=== PATIENT | female | born 1930 | race Caucasian/White ===

== ENCOUNTER 2019-11-04 18:18 | Emergency (ER) | payer MEDICARE, OTHER ==
[2019-11-04] MEDS ORDERED: Adenosine 12 MG/4 ML SDV ONE (18:48)
[2019-11-04] MEDS ORDERED: Sodium Chloride 0.9% 10 ML Syringe FLUSH PRN (18:48)
[2019-11-04] MEDS ORDERED: Adenosine 6 MG/2 ML SDV ONE (18:48)
[2019-11-04] MEDS ORDERED: Sodium Chloride 0.9% 1,000 ML IV SCH (19:00)
--- NOTE | 2019-11-04 19:05 | EDM.PDOC ---
ED HPI GENERAL MEDICAL PROBLEM - General Chief Complaint: Chest Pain Stated Complaint: HIGH BLOOD PRESSURE FAST PULSE Time Seen by Provider: 11/04/19 18:48 Source of Information: Reports: Patient History Limitations: Reports: No Limitations - History of Present Illness INITIAL COMMENTS - FREE TEXT/NARRATIVE: The patient presents with palpitations and chest pain. She said this started last night. She went to bed and it went away. It came back today and her checked her BP and pulse. Her BP was up and her pulse was elevated at 175. She has chest pain that radiates to her back and she has some shortness of breath. She has no fever, chills, cough, congestion, runny nose, abdominal pain, nausea or vomiting. She has a history of hypertension. This may have happened a time before but she drank some fluids and it went away. Onset: Gradual Duration: Day(s): (last night) Location: Reports: Chest Quality: Reports: Pressure Severity: Moderate Improves with: Reports: None Worsens with: Reports: None Associated Symptoms: Reports: Chest Pain, Shortness of Breath. Denies: Cough, Fever/Chills, Headaches, Nausea/Vomiting - Related Data Allergies Allergy/AdvReac Type Severity Reaction Status Date / Time pneumococcal vaccine Allergy Airway Verified 11/04/19 18:56 Tightness Sulfa (Sulfonamide Allergy Hives Verified 11/04/19 18:56 Antibiotics) Home Meds: Home Meds Lisinopril 10 mg PO DAILY 12/04/13 [History] Aspirin [Jimmy Chewable] 81 mg PO DAILY 12/05/18 [History] Citalopram [Citalopram HBr] 20 mg PO DAILY 12/05/18 [History] Rosuvastatin Calcium 20 mg PO DAILY 12/05/18 [History] Metoprolol Succinate 25 mg PO DAILY #30 tab.er.24h 11/04/19 [Rx] Past Medical History HEENT History: Reports: Cataract Cardiovascular History: Reports: High Cholesterol, Hypertension Gastrointestinal History: Reports: Diverticulosis DIRECTOR GLOBAL History: Reports: Musculoskeletal History: Reports: Neck Pain, Chronic Other Musculoskeletal History: 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, 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 Neurological History: Reports: CVA Other Neuro History: 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 Endocrine/Metabolic History: Reports: Diabetes, Type II Oncologic (Cancer) History: Reports: Breast, Colon - Past Surgical History HEENT Surgical History: Reports: Tonsillectomy Cardiovascular Surgical History: Reports: Carotid Stents GI Surgical History: Reports: Colon Musculoskeletal Surgical History: Reports: Hip Replacement Oncologic Surgical History: Reports: Other (See Below) Social & Family History - Family History Family Medical History: Noncontributory Cardiac: Reports: Heart Failure, Stent Respiratory: Reports: Asthma Psychiatric: Reports: Anxiety, Depression Endocrine/Metabolic: Reports: Diabetes, type II Oncologic: Reports: Colon - Tobacco Use Smoking Status *Q: Never Smoker Second Hand Smoke Exposure: No - Caffeine Use Caffeine Use: Reports: None - Recreational Drug Use Recreational Drug Use: No - Living Situation & Occupation Living situation: Reports: , with Family Occupation: Retired ED ROS GENERAL - Review of Systems Review Of Systems: See Below Constitutional: Reports: No Symptoms HEENT: Reports: No Symptoms Respiratory: Reports: Shortness of Breath Cardiovascular: Reports: Chest Pain, Palpitations Endocrine: Reports: No Symptoms GI/Abdominal: Reports: No Symptoms : Reports: No Symptoms Musculoskeletal: Reports: No Symptoms ED EXAM, GENERAL - Physical Exam Exam: See Below Exam Limited By: No Limitations General Appearance: Alert, No Apparent Distress Ears: Normal External Exam Nose: Normal Inspection Head: Atraumatic, Normocephalic Neck: Normal Inspection Respiratory/Chest: No Respiratory Distress, Lungs Clear, Normal Breath Sounds Cardiovascular: No Edema, No Murmur, Tachycardia GI/Abdominal: Soft, Non-Tender, No Organomegaly, No Mass Back Exam: Normal Inspection Extremities: Normal Inspection Neurological: Alert, Oriented, No Motor/Sensory Deficits EKG INTERPRETATION EKG Date: 11/04/19 Time: 18:48 Rhythm: NSR Rate (Beats/Min): 79 [place]: Normal P-Wave: Present QRS: Normal ST-T: Normal QT: Normal EKG Interpretation Comments: Q waves in the inferior leads Course - Vital Signs Last Recorded V/S: Last Vital Signs Temp 97.1 F 11/04/19 18:53 Pulse 166 H 11/04/19 18:53 Resp 15 11/04/19 18:53 BP 142/94 H 11/04/19 18:53 Pulse Ox 97 11/04/19 18:53 - Orders/Labs/Meds Orders: Active Orders 24 hr Category Date Time Status Cardiac Monitoring [RC] . DIRECTED Care 11/04/19 18:48 Active EKG Documentation Completion [RC] STAT Care 11/04/19 18:48 Active Peripheral IV Care [RC] . DIRECTED Care 11/04/19 18:48 Active Sodium Chloride 0.9% [Normal Saline] 1,000 ml Med 11/04/19 19:00 Active IV ASDIRECTED Sodium Chloride 0.9% [Saline Flush] Med 11/04/19 18:48 Active 10 ml FLUSH ASDIRECTED PRN Peripheral IV Insertion Adult [OM.PC] Stat Oth 11/04/19 18:48 Ordered Medication Orders Sodium Chloride (Normal Saline) 1,000 mls @ 125 mls/hr IV ASDIRECTED JULIANA Last Admin: 11/04/19 19:32 Dose: 125 mls/hr Sodium Chloride (Saline Flush) 10 ml FLUSH ASDIRECTED PRN PRN Reason: Keep Vein Open Last Admin: 11/04/19 19:54 Dose: 10 ml Labs: Laboratory Tests 11/04/19 11/04/19 Range/Units 18:50 18:50 WBC 5.54 (3.98-10.04) K/mm3 RBC 4.30 (3.98-5.22) M/mm3 Hgb 12.9 (11.2-15.7) gm/dl Hct 39.2 (34.1-44.9) % MCV 91.2 (79.4-94.8) fl MCH 30.0 (25.6-32.2) pg MCHC 32.9 (32.2-35.5) g/dl RDW Std Deviation 43.3 (36.4-46.3) fL Plt Count 166 L (182-369) K/mm3 MPV 8.2 L (9.4-12.3) fl Neut % (Auto) 53.2 (34.0-71.1) % Lymph % (Auto) 35.6 (19.3-51.7) % [place] % (Auto) 9.7 (4.7-12.5) % Eos % (Auto) 1.1 (0.7-5.8) Baso % (Auto) 0.4 (0.1-1.2) % Neut # (Auto) 2.95 (1.56-6.13) K/mm3 Lymph # (Auto) 1.97 (1.18-3.74) K/mm3 [place] # (Auto) 0.54 H (0.24-0.36) K/mm3 Eos # (Auto) 0.06 (0.04-0.36) K/mm3 Baso # (Auto) 0.02 (0.01-0.08) K/mm3 Sodium 137 (136-145) mEq/L Potassium 4.1 (3.5-5.1) mEq/L Chloride 104 (98-107) mEq/L Carbon Dioxide 24 (21-32) mEq/L Anion Gap 13.1 (5-15) BUN 28 H (7-18) mg/dL Creatinine 1.3 H (0.55-1.02) mg/dL Est Cr Clr Drug Dosing 23.66 mL/min Estimated GFR (MDRD) 39 (>60) mL/min BUN/Creatinine Ratio 21.5 H (14-18) Glucose 199 H (83-115) mg/dL Calcium 8.9 (8.5-10.1) mg/dL Total Bilirubin 0.6 (0.2-1.0) mg/dL AST 31 (15-37) U/L ALT 44 (14-59) U/L Alkaline Phosphatase 87 (46-116) U/L Troponin I < 0.017 (0.00-0.056) ng/mL Total Protein 7.0 (6.4-8.2) g/dl Albumin 4.0 (3.4-5.0) g/dl Globulin 3.0 gm/dL Albumin/Globulin Ratio 1.3 (1-2) Meds: Medications Generic Name Dose Route Start Last Admin Trade Name Freq PRN Reason Stop Dose Admin Sodium Chloride 1,000 mls @ 125 mls/hr 11/04/19 19:00 11/04/19 19:32 Normal Saline IV 125 mls/hr ASDIRECTED JULIANA Administration Sodium Chloride 10 ml 11/04/19 18:48 11/04/19 19:54 Saline Flush FLUSH 10 ml ASDIRECTED PRN Administration Keep Vein Open Discontinued Medications Generic Name Dose Route Start Last Admin Trade Name Freq PRN Reason Stop Dose Admin Adenosine Confirm 11/04/19 18:48 11/04/19 19:54 Adenocard Administered 11/04/19 18:49 Not Given Dose 6 mg .ROUTE .STK-MED ONE Adenosine Confirm 11/04/19 18:48 06/15/20 19:54 Adenocard Administered 11/04/19 18:49 Not Given Dose 12 mg .ROUTE .STK-MED ONE Metoprolol Tartrate 25 mg 11/04/19 20:13 Lopressor PO 11/04/19 20:14 ONETIME ONE - Re-Assessments/Exams Free Text/Narrative Re-Assessment/Exam: 11/04/19 19:04 I ordered an IV NS at 125mL/hr, EKG and labs. It appeared the patient is in SVT. I ordered adenisine. When my nurse was putting in an IV, she concerted to a NSR with no acute changes. 11/04/19 19:16 Her CXR looks good. Her CBC looks good. Her creatinine was slightly elevated at 1.3. Her glucose is 199. Her troponin is negative. She feels much better. 11/04/19 20:14 I will give her a dose of metoprolol here and a prescription for more. Departure - Departure Time of Disposition: 20:20 Disposition: Home, Self-Care 01 Condition: Good Clinical Impression: SVT (supraventricular tachycardia) Prescriptions: Metoprolol Succinate 25 mg PO DAILY #30 tab.er.24h Referrals: Natan Christiansen MD [Primary Care Provider] - 1 Week Forms: ED Department Discharge Additional Instructions: Take your medication as prescribed. Take the metoprolol daily. If you have an episode try bearing down like to have a bowel movement. If that does not work please return. Follow up with Dr Christiansen. Sepsis Event Note (ED) - Evaluation Sepsis Screening Result: No Definite Risk - Focused Exam Vital Signs: Vital Signs Temp Pulse Resp BP Pulse Ox 11/04/19 18:53 97.1 F 166 H 15 142/94 H 97 - My Orders Last 24 Hours: My Active Orders 11/04/19 18:48 Cardiac Monitoring [RC] . DIRECTED EKG Documentation Completion [RC] STAT Peripheral IV Care [RC] . DIRECTED Sodium Chloride 0.9% [Saline Flush] 10 ml FLUSH ASDIRECTED PRN Peripheral IV Insertion Adult [OM.PC] Stat 11/04/19 19:00 Sodium Chloride 0.9% [Normal Saline] 1,000 ml IV ASDIRECTED - Assessment/Plan Last 24 Hours: My Active Orders 06/15/20 18:48 Cardiac Monitoring [RC] . DIRECTED EKG Documentation Completion [RC] STAT Peripheral IV Care [RC] . DIRECTED Sodium Chloride 0.9% [Saline Flush] 10 ml FLUSH ASDIRECTED PRN Peripheral IV Insertion Adult [OM.PC] Stat 11/04/19 19:00 Sodium Chloride 0.9% [Normal Saline] 1,000 ml IV ASDIRECTED
--- NOTE | 2019-11-04 20:08 | CR ---
Chest: AP view of the chest was obtained. Comparison: Prior chest x-ray of 05/16/15. Heart size and mediastinum are within normal limits for AP technique. Lungs are clear and no acute parenchymal change. Surgical clips are seen within the right axillary region. Scoliosis is noted. No acute bony abnormality is seen. Impression: 1. Nothing acute is seen on frontal chest x-ray. Diagnostic code #2 Study was dictated in MDT
[2019-11-04] MEDS ORDERED: Metoprolol Tartrate 25 MG Tab PO ONE (20:13)
[2019-11-04 21:15] VITALS: BP 128/58; PULSE 63
== END 2019-11-04 21:00 | disposition home or self-care (01) ==
LOC: JD.ED 18:18
DX: I47.1 Supraventricular tachycardia (principal); E78.00 Pure hypercholesterolemia, unspecified; I10 Essential (primary) hypertension; E11.9 Type 2 diabetes mellitus without complications; Z79.82 Long term (current) use of aspirin; Z79.899 Other long term (current) drug therapy; Z88.8 Allergy status to other drugs, medicaments and biological substances; Z88.2 Allergy status to sulfonamides; Z86.73 Personal history of transient ischemic attack (TIA), and cerebral infarction without residual deficits
CPT/HCPCS: 36415; 71045; 80053; 84484; 85025; 93005; 99285; A9270; J7030; 93010; 99284

== ENCOUNTER 2019-11-27 03:50 | Emergency (ER) | payer MEDICARE, OTHER ==
[2019-11-27] MEDS ORDERED: carBAMazepine 200 MG Tab PO ONE (05:06)
--- NOTE | 2019-11-27 05:16 | EDM.PDOC ---
ED HPI GENERAL MEDICAL PROBLEM - General Chief Complaint: ENT Problem Stated Complaint: ear pain Time Seen by Provider: 11/27/19 04:18 Source of Information: Reports: Patient, Family () History Limitations: Reports: No Limitations - History of Present Illness INITIAL COMMENTS - FREE TEXT/NARRATIVE: Mrs. 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 As the patient is telling me her story, she winces in pain every 5 to 10 seconds. She states that the pain is sharp and stabbing in character, electric-like, lasting only a moment. She has not identified any modifiers, although she states that her left postauricular area and neck are somewhat tender. The patient states that she has been seen by ENT on 2 separate occasions, but both times was told that there was nothing wrong with her ear. She states that she saw her PCP just yesterday, but for a different reason, and she forgot to tell him about her ear pain. The patient states that she does not have a history of shingles. The patient states that she took some Tylenol last night, which did not help her symptoms at all. Here in the ED, the patient's initial BP is found to be elevated at 170/102, with a bradycardia 59 bpm. She is afebrile, saturating 100% on room air. In addition to her left ear pain, she states that she has occasional diarrhea, but otherwise she denies recent fever, chills, sore throat, nasal or sinus congestion, cough, dyspnea, chest pain, palpitations, nausea, vomiting, constipation, abdominal pain, urinary symptoms, recent weight gain or weight loss, recent bloody bowel movements or black bowel movements, recent joint aches, headaches, or rashes. The patient's PCP is Dr. Natan Christiansen. Treatments [employer]GING [employer]EM[employer]: Reports: Acetaminophen Left Ear Pain Score (Numeric/FACES): 6 - Related Data Allergies Allergy/AdvReac Type Severity Reaction Status Date / Time pneumococcal vaccine Allergy Airway Verified 11/27/19 04:03 Tightness Sulfa (Sulfonamide Allergy Hives Verified 11/27/19 04:03 Antibiotics) Home Meds: Home Meds Lisinopril 10 mg PO DAILY 12/04/13 [History] Aspirin [Jimmy Chewable] 81 mg PO DAILY 12/05/18 [History] Rosuvastatin Calcium 20 mg PO DAILY 12/05/18 [History] Metoprolol Succinate 25 mg PO DAILY #30 tab.er.24h 11/04/19 [Rx] Acetaminophen 500 mg PO Q4HR PRN 11/27/19 [History] Calcium Carbonate/Vitamin D3 [Calcium Carbonate/Vitamin D 600 MG-200 Unit] 1 tab PO BID 11/27/19 [History] Denosumab [Prolia] 60 mg SUBCUT ASDIRECTED 11/27/19 [History] FLUoxetine HCl [Fluoxetine HCl] 20 mg PO DAILY 11/27/19 [History] carBAMazepine [Carbamazepine] 1 tab PO QAM #7 tablet 11/27/19 [Rx] Past Medical History Cardiovascular History: Reports: High Cholesterol, Hypertension Gastrointestinal History: Reports: Diverticulosis (diverticulitis) Neurological History: Reports: CVA (Apr 2015 -> left hemiparesis) Psychiatric History: Reports: Depression Endocrine/Metabolic History: Reports: Diabetes, Type II Oncologic (Cancer) History: Reports: Breast (right,s/p lumpectomy, RTx), Colon (s/p hemicolectomy) - Past Surgical History HEENT Surgical History: Reports: Cataract Surgery (bilateral), Tonsillectomy GI Surgical History: Reports: Colon (hemicolectomy), Other (See Below) (Hemorrhoidectomy) Musculoskeletal Surgical History: Reports: Hip Replacement (left total, right partial) Oncologic Surgical History: Reports: Lumpectomy (right) Social & Family History - Family History Family Medical History: Noncontributory Cardiac: Reports: Heart Failure, Stent Respiratory: Reports: Asthma Psychiatric: Reports: Anxiety, Depression Endocrine/Metabolic: Reports: Diabetes, type II Oncologic: Reports: Colon - Tobacco Use Smoking Status *Q: Never Smoker - Caffeine Use Caffeine Use: Reports: Coffee - Alcohol Use Alcohol Use History: No - Recreational Drug Use Recreational Drug Use: No - Living Situation & Occupation Living situation: Reports: , with Spouse Occupation: Retired ED ROS GENERAL - Review of Systems Review Of Systems: Comprehensive ROS is negative, except as noted in HPI. Musculoskeletal: Reports: Neck Pain (chronic) ED EXAM, GENERAL - Physical Exam Exam: See Below Exam Limited By: No Limitations General Appearance: Alert, Mild Distress (winces in pain every 5 to 10 seconds), Thin Eye Exam: Bilateral Eye: EOMI, Normal Inspection Ears: Normal External Exam, Normal Canal, Hearing Grossly Normal, Normal TMs Nose: Normal Inspection, Normal Mucosa, No Blood Throat/Mouth: Normal Inspection, Normal Lips, Normal Teeth, Normal Gums, Normal Oropharynx, Normal Voice, No Airway Compromise Head: Atraumatic, Normocephalic Neck: Normal Inspection (No visible or palpable abnormalities to the left side of the patient's neck), Supple, Non-Tender. No: Lymphadenopathy (L), Lymphadenopathy (R) Respiratory/Chest: No Respiratory Distress, Lungs Clear, Normal Breath Sounds, No Accessory Muscle Use Cardiovascular: Normal Peripheral Pulses, Regular Rate, Rhythm, No Edema, No Gallop, No JVD, No Murmur, No Rub Peripheral Pulses: 3+: Radial (L), Radial (R) GI/Abdominal: Normal Bowel Sounds, Soft, Non-Tender, No Organomegaly, No Distention, No Abnormal Bruit, No Mass (Female) Exam: Deferred Rectal (Female) Exam: Deferred Back Exam: Normal Inspection, Full Range of Motion, NT Extremities: Normal Inspection, Normal Range of Motion, No Pedal Edema, Normal Capillary Refill Neurological: Alert, Oriented, Normal Cognition Psychiatric: Normal Affect Skin Exam: Warm, Dry, Intact, Normal Color, No Rash Course - Vital Signs Last Recorded V/S: Last Vital Signs Temp 36.1 C 11/27/19 03:59 Pulse 59 L 11/27/19 03:59 Resp 16 11/27/19 03:59 BP 170/62 H 11/27/19 03:59 Pulse Ox 100 11/27/19 03:59 - Orders/Labs/Meds Orders: Active Orders 24 hr Category Date Time Status carBAMazepine [TEGretol Tab] Med 11/27/19 05:06 Once 200 mg PO ONETIME ONE - Re-Assessments/Exams Free Text/Narrative Re-Assessment/Exam: 11/27/19 05:07 As above, the patient has been suffering from sharp, momentary pain felt primarily in her left ear, but extending postauricularly down the left side of her neck, for 10 years, with her most recent episode beginning yesterday, 11/26/2019. No abnormality was found on examination. Her history is most consistent with nervus intermedius neuralgia, however, it could also be due to glossopharyngeal neuralgia. Either way, the approach is the same; a contrast-enhanced MRI and MRA is indicated to rule out an anatomic abnormality, and initial treatment is with carbamazepine, 200 mg/day, however, the dose will likely need to be increased. I will start the patient on carbamazepine here in the ED, and prescribe a 7-day course. She is to call her PCPs office this morning to arrange to be seen. From there, he can order the MRI/MRA, and c ontinue the carbamazepine, if he agrees with it. Departure - Departure Time of Disposition: 05:09 Disposition: Home, Self-Care 01 Condition: Good Clinical Impression: Facial neuralgia - Discharge Information *PRESCRIPTION DRUG MONITORING PROGRAM REVIEWED*: Not Applicable *COPY OF PRESCRIPTION DRUG MONITORING REPORT IN PATIENT IRA: Not Applicable Referrals: Natan Christiansen MD [Primary Care Provider] - Additional Instructions: You were seen in the emergency room for sharp, intermittent pain felt in your left ear, behind your ear, down the left side of her neck, on and off for the past 10 years, with your most recent episode beginning this past 11/26/2019. 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 You have been started on the neuroleptic medicine carbamazepine, and a prescription for carbamazepine has been sent to the [facility]. Take 1 tablet of carbamazepine every morning, starting tomorrow morning, , 11/28/2019, as prescribed. We recommend that you follow-up with your PCP, Dr. Natan Christiansen, at the next available appointment. He can order for you a contrast-enhanced brain MRI and MRA, to make sure that there are no anatomic abnormalities causing your symptoms. Additionally, if he agrees, he can continue the carbamazepine that we have started. If any other problems, please do not hesitate to return to the ER. Sepsis Event Note (ED) - Evaluation Sepsis Screening Result: No Definite Risk - Focused Exam Vital Signs: Vital Signs Temp Pulse Resp BP Pulse Ox 11/27/19 03:59 36.1 C 59 L 16 170/62 H 100 - My Orders Last 24 Hours: My Active Orders 11/27/19 05:06 carBAMazepine [TEGretol Tab] 200 mg PO ONETIME ONE - Assessment/Plan Last 24 Hours: My Active Orders 11/27/19 05:06 carBAMazepine [TEGretol Tab] 200 mg PO ONETIME ONE
[2019-11-27 05:35] VITALS: BP 161/62; PULSE 52
== END 2019-11-27 05:35 | disposition home or self-care (01) ==
LOC: JD.ED 03:50
DX: G51.9 Disorder of facial nerve, unspecified (principal); I10 Essential (primary) hypertension; E78.00 Pure hypercholesterolemia, unspecified; Z88.2 Allergy status to sulfonamides; Z88.7 Allergy status to serum and vaccine; Z79.82 Long term (current) use of aspirin; Z79.899 Other long term (current) drug therapy; E11.9 Type 2 diabetes mellitus without complications; Z86.73 Personal history of transient ischemic attack (TIA), and cerebral infarction without residual deficits
CPT/HCPCS: 99283; A9270

== ENCOUNTER 2020-01-07 08:19 | Emergency (ER) | payer MEDICARE, OTHER ==
[2020-01-07 08:34] VITALS: BP 159/56; PULSE 53
[2020-01-07] MEDS ORDERED: Oxymetazoline 0.05% Nasal Spray 30 ML Bottle NAS ONE (08:39)
[2020-01-07] MEDS ORDERED: Lidocaine 1% with EPINEPHrine 1:100,000 10 ML MDV INJECT ONE (08:39)
[2020-01-07] MEDS ORDERED: Lidocaine 1% with EPINEPHrine 1:100,000 20 ML MDV ONE (08:41)
[2020-01-07] MEDS ORDERED: Oxymetazoline 0.05% Nasal Spray 30 ML Bottle ONE (08:43)
[2020-01-07] MEDS ORDERED: Tranexamic Acid 1,000 MG in Sodium Chloride 0.9% 100 ML IV SCH (08:45)
--- NOTE | 2020-01-07 09:08 | EDM.PDOC ---
ED HPI GENERAL MEDICAL PROBLEM - General Chief Complaint: ENT Problem Stated Complaint: NOSE BLEED Time Seen by Provider: 01/07/20 08:29 Source of Information: Reports: Patient History Limitations: Reports: No Limitations - History of Present Illness INITIAL COMMENTS - FREE TEXT/NARRATIVE: The patient presents with epistaxis. The bleed is from the left nostril. This started last night. It stopped through the night and started up again this morning. She has never had a nose bleed before. She had no trauma to the nose. She is on aspirin. Onset: Sudden Duration: Day(s): (Last night) Severity: Moderate Improves with: Reports: None Worsens with: Reports: None Associated Symptoms: Reports: No Other Symptoms - Related Data Allergies Allergy/AdvReac Type Severity Reaction Status Date / Time pneumococcal vaccine Allergy Airway Verified 01/07/20 08:34 Tightness Sulfa (Sulfonamide Allergy Hives Verified 01/07/20 08:34 Antibiotics) Home Meds: Home Meds Lisinopril 10 mg PO DAILY 12/04/13 [History] Aspirin [Jimmy Chewable] 81 mg PO DAILY 12/05/18 [History] Rosuvastatin Calcium 20 mg PO DAILY 12/05/18 [History] Metoprolol Succinate 25 mg PO DAILY #30 tab.er.24h 11/04/19 [Rx] Acetaminophen 500 mg PO Q4HR PRN 11/27/19 [History] Calcium Carbonate/Vitamin D3 [Calcium Carbonate/Vitamin D 600 MG-200 Unit] 1 tab PO BID 11/27/19 [History] Denosumab [Prolia] 60 mg SUBCUT ASDIRECTED 11/27/19 [History] FLUoxetine HCl [Fluoxetine HCl] 20 mg PO DAILY 11/27/19 [History] carBAMazepine [Carbamazepine] 1 tab PO QAM #7 tablet 11/27/19 [Rx] Past Medical History HEENT History: Reports: Cataract Cardiovascular History: Reports: High Cholesterol, Hypertension Gastrointestinal History: Reports: Diverticulosis 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: Musculoskeletal History: Reports: Neck Pain, Chronic Other Musculoskeletal History: 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, 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 Neurological History: Reports: CVA Other Neuro History: 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 Psychiatric History: Reports: Depression Endocrine/Metabolic History: Reports: Diabetes, Type II Oncologic (Cancer) History: Reports: Breast, Colon - Past Surgical History HEENT Surgical History: Reports: Cataract Surgery, Tonsillectomy GI Surgical History: Reports: Colon, Other (See Below) Musculoskeletal Surgical History: Reports: Hip Replacement Oncologic Surgical History: Reports: Lumpectomy Social & Family History - Family History Family Medical History: Noncontributory Cardiac: Reports: Heart Failure, Stent Respiratory: Reports: Asthma Psychiatric: Reports: Anxiety, Depression Endocrine/Metabolic: Reports: Diabetes, type II Oncologic: Reports: Colon - Tobacco Use Smoking Status *Q: Never Smoker - Caffeine Use Caffeine Use: Reports: Coffee - Living Situation & Occupation Living situation: Reports: , with Spouse Occupation: Retired ED ROS ENT - Review of Systems Review Of Systems: See Below Constitutional: Reports: No Symptoms HEENT: Reports: Nosebleed Respiratory: Reports: No Symptoms Cardiovascular: Reports: No Symptoms Endocrine: Reports: No Symptoms GI/Abdominal: Reports: No Symptoms : Reports: No Symptoms Musculoskeletal: Reports: No Symptoms ED EXAM, ENT - Physical Exam Exam: See Below Exam Limited By: No Limitations General Appearance: Alert, No Apparent Distress Ears: Normal External Exam Nose: Active Bleeding (left nostril) Mouth/Throat: Normal Inspection Head: Atraumatic, Normocephalic Neck: Normal Inspection Respiratory/Chest: No Respiratory Distress ED ENT PROCEDURES - Epistaxis Procedure Indication: Epistaxis Recent anticoagulants/antiplatlets: Yes (aspirin) Uncontrolled HTN: No Recent septal/nasal surgery: No Site of bleeding: Left Nare Clearing of clots: Patient Blew Nose, Suction Topical Meds: Other (Afrin, TXA and licodaine with epi) Ice pack to area: No Chemical cautery: Silver Nitrate Topical Complications: No Course - Vital Signs Last Recorded V/S: Last Vital Signs Temp 97.6 F 01/07/20 08:32 Pulse 53 L 01/07/20 08:32 Resp 16 01/07/20 08:32 BP 159/56 H 01/07/20 08:32 Pulse Ox 100 01/07/20 08:32 - Orders/Labs/Meds Orders: Active Orders 24 hr Category Date Time Status Tranexamic Acid [Cyklokapron] 1,000 mg Med 01/07/20 08:45 Active Sodium Chloride 0.9% [Normal Saline] 100 ml IV ONETIME Medication Orders Tranexamic Acid 1,000 mg/ (Sodium Chloride) 110 mls @ 400 mls/hr IV ONETIME JULIANA Last Admin: 01/07/20 08:53 Dose: 400 mls/hr Documented by: ELMER Meds: Medications Generic Name Dose Route Start Last Admin Trade Name Edgard PRN Reason Stop Dose Admin Tranexamic Acid 1,000 mg/ 110 mls @ 400 mls/hr 01/07/20 08:45 01/07/20 08:53 Sodium Chloride IV 400 mls/hr ONETIME JULIANA Administration Discontinued Medications Generic Name Dose Route Start Last Admin Trade Name Edgard PRN Reason Stop Dose Admin Lidocaine/Epinephrine 10 ml 01/07/20 08:39 01/07/20 08:53 Xylocaine 1% With Epinephrine 1:100,000 INJECT 01/07/20 08:40 10 ml ONETIME ONE Administration Lidocaine/Epinephrine Confirm 01/07/20 08:41 01/07/20 08:54 Xylocaine 1% With Epinephrine 1:100,000 Administered 01/07/20 08:42 Not Given Dose 20 ml .ROUTE .STK-MED ONE Oxymetazoline HCl 1 ml 01/07/20 08:39 01/07/20 08:53 Nasal Decongestant Malone SHINE 01/07/20 08:40 1 ml ONETIME ONE Administration Oxymetazoline HCl Confirm 01/07/20 08:43 01/07/20 08:54 Nasal Decongestant Malone Administered 01/07/20 08:44 Not Given Dose 30 ml .ROUTE .STK-MED ONE Tranexamic Acid Confirm 01/07/20 08:42 01/07/20 08:54 Cyklokapron Administered 01/07/20 08:43 Not Given Dose 1,000 mg .ROUTE .STK-MED ONE - Re-Assessments/Exams Free Text/Narrative Re-Assessment/Exam: 01/07/20 09:53 I was able to stop the bleeding. I will have her hold her aspirin for a week and put antibiotic ointment in her nostrils 2 times per day. Departure - Departure Time of Disposition: 09:55 Disposition: Home, Self-Care 01 Condition: Good Clinical Impression: Epistaxis - Discharge Information *PRESCRIPTION DRUG MONITORING PROGRAM REVIEWED*: Not Applicable *COPY OF PRESCRIPTION DRUG MONITORING REPORT IN PATIENT IRA: Not Applicable Referrals: Natan Christiansen MD [Primary Care Provider] - 1 Week Forms: ED Department Discharge Additional Instructions: Do not take your aspirin for 1 week. Put antibiotic ointment or petroleum jelly in each nostril 2 times per day for 5 days. Please return if you are worse. Sepsis Event Note (ED) - Evaluation Sepsis Screening Result: No Definite Risk - Focused Exam Vital Signs: Vital Signs Temp Pulse Resp BP Pulse Ox 01/07/20 08:32 97.6 F 53 L 16 159/56 H 100 - My Orders Last 24 Hours: My Active Orders 01/07/20 08:45 Tranexamic Acid [Cyklokapron] 1,000 mg Sodium Chloride 0.9% [Normal Saline] 100 ml IV ONETIME - Assessment/Plan Last 24 Hours: My Active Orders 01/07/20 08:45 Tranexamic Acid [Cyklokapron] 1,000 mg Sodium Chloride 0.9% [Normal Saline] 100 ml IV ONETIME
== END 2020-01-07 10:15 | disposition home or self-care (01) ==
LOC: JD.ED 08:19
DX: R04.0 Epistaxis (principal); E78.00 Pure hypercholesterolemia, unspecified; I10 Essential (primary) hypertension; E11.9 Type 2 diabetes mellitus without complications; F32.9 Major depressive disorder, single episode, unspecified; Z88.7 Allergy status to serum and vaccine; Z88.2 Allergy status to sulfonamides; Z79.82 Long term (current) use of aspirin; Z79.899 Other long term (current) drug therapy; Z90.89 Acquired absence of other organs
CPT/HCPCS: 30901; 96365; 99283; A9270; J7050; 99282

== ENCOUNTER 2020-10-04 20:21 | Inpatient (IN) | payer MEDICARE, OTHER ==
--- NOTE | 2020-10-04 21:00 | EDM.PDOC ---
ED HPI GENERAL MEDICAL PROBLEM - General Chief Complaint: Gastrointestinal Problem Stated Complaint: [facility] Time Seen by Provider: 10/04/20 20:57 - History of Present Illness INITIAL COMMENTS - FREE TEXT/NARRATIVE: 89-year-old female presents the emergency room brought in by [facility] with abdominal pain. Patient states that she has had some abdominal pain for the last several days this is in the upper abdomen and then and again in the suprapubic area. She denies any fevers or chills no nausea vomiting patient is fed via G-tube because her esophagus stopped working. Not much history came from the [facility] other than she has had some discomfort for a couple of days and has had some coffee-ground emesis. The patient is not able to provide any more history she is not aware of any fevers or chills. Bilateral Upper Abdomen Pain Score (Numeric/FACES): 7 - Related Data Allergies Allergy/AdvReac Type Severity Reaction Status Date / Time pneumococcal vaccine Allergy Airway Verified 01/07/20 08:34 Tightness Sulfa (Sulfonamide Allergy Hives Verified 01/07/20 08:34 Antibiotics) Home Meds: Home Meds Lisinopril 10 mg GTUBE DAILY 12/04/13 [History] Aspirin [Jimmy Chewable] 81 mg PO DAILY 12/05/18 [History] Acetaminophen 500 mg PO Q4HR PRN 11/27/19 [History] Calcium Carbonate/Vitamin D3 [Calcium Carbonate/Vitamin D 600 MG-200 Unit] 1 tab GTUBE BID 11/27/19 [History] FLUoxetine HCl [Fluoxetine HCl] 20 mg GTUBE DAILY 11/27/19 [History] Acetaminophen 650 mg GTUBE BEDTIME 10/04/20 [History] Bisacodyl [Gentle Laxative] 10 mg RC ASDIRECTED PRN 10/04/20 [History] Mag Hydrox/Aluminum Hyd/Simeth [Antacid Liquid] 20 ml GTUBE Q4H PRN 10/04/20 [History] Propylene Glycol/PEG 400/Pf [Systane 0.3-0.4% Eye Drop] 1 drop EYEBOTH Q6H PRN 10/04/20 [History] Sennosides [Senna] 8.6 mg GTUBE BID 10/04/20 [History] Past Medical History HEENT History: Reports: Cataract Cardiovascular History: Reports: Afib, Angina, CAD, High Cholesterol, Hypertension Respiratory History: Reports: Pneumonia, Recurrent Gastrointestinal History: Reports: Chronic Constipation, 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: Musculoskeletal History: Reports: Neck Pain, Chronic Other Musculoskeletal History: 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, 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 Neurological History: Reports: CVA, Parkinson's Other Neuro History: 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 partial hip to right side Oncologic Surgical History: Reports: Lumpectomy Other Oncologic Surgeries/Procedures: 17 inches of colon removed, right breast lumpectomy with 17 nodes removed Social & Family History - Family History Family Medical History: No Pertinent Family History Cardiac: Reports: Heart Failure, Stent Respiratory: Reports: Asthma Psychiatric: Reports: Anxiety, Depression Endocrine/Metabolic: Reports: Diabetes, type II Oncologic: Reports: Colon - Tobacco Use Tobacco Use Status *Q: Unknown Ever Used Tobacco - Caffeine Use Caffeine Use: Reports: Coffee - Living Situation & Occupation Living situation: Reports: , with Spouse Occupation: Retired ED ROS GENERAL - Review of Systems Review Of Systems: See Below Constitutional: Reports: No Symptoms HEENT: Reports: No Symptoms, Other (Swallowing difficulty) Respiratory: Reports: No Symptoms Cardiovascular: Reports: No Symptoms Endocrine: Reports: No Symptoms GI/Abdominal: Reports: No Symptoms : Reports: No Symptoms Musculoskeletal: Reports: No Symptoms Skin: Reports: No Symptoms Neurological: Reports: No Symptoms Psychiatric: Reports: No Symptoms ED EXAM, GENERAL - Physical Exam Exam: See Below Exam Limited By: No Limitations General Appearance: Alert, No Apparent Distress Head: Atraumatic, Normocephalic Neck: Normal Inspection, Supple, Non-Tender, Full Range of Motion. No: Lymphadenopathy (L), Lymphadenopathy (R) Respiratory/Chest: No Respiratory Distress, Lungs Clear, Normal Breath Sounds Cardiovascular: Regular Rate, Rhythm, No Edema, Systolic Murmur (1-2 over 6 heard best over the right upper sternal border) GI/Abdominal: Normal Bowel Sounds, Soft, Other (She has some epigastric discomfort and some suprapubic discomfort no rigidity rebound or guarding noted) Back Exam: Normal Inspection. No: CVA Tenderness (L), CVA Tenderness (R) Extremities: Normal Inspection, No Pedal Edema Neurological: Alert Skin Exam: Warm, Dry, Intact Course - Vital Signs Last Recorded V/S: Last Vital Signs Temp 37.2 C 10/04/20 20:28 Pulse 91 10/04/20 20:28 Resp 15 10/04/20 20:28 BP 131/70 10/04/20 20:28 Pulse Ox 98 10/04/20 20:28 - Orders/Labs/Meds Labs: Laboratory Tests 10/04/20 10/04/20 10/04/20 Range/Units 20:15 20:15 21:00 WBC 8.06 (3.98-10.04) K/mm3 RBC 2.84 L (3.98-5.22) M/mm3 Hgb 8.7 L D (11.2-15.7) gm/dl Hct 26.5 L (34.1-44.9) % MCV 93.3 (79.4-94.8) fl MCH 30.6 (25.6-32.2) pg MCHC 32.8 (32.2-35.5) g/dl RDW Std Deviation 42.3 (36.4-46.3) fL Plt Count 450 H D (182-369) K/mm3 MPV 8.5 L (9.4-12.3) fl Neut % (Auto) 69.4 (34.0-71.1) % Lymph % (Auto) 18.2 L (19.3-51.7) % Dane % (Auto) 10.3 (4.7-12.5) % Eos % (Auto) 1.6 (0.7-5.8) Baso % (Auto) 0.4 (0.1-1.2) % Neut # (Auto) 5.59 (1.56-6.13) K/mm3 Lymph # (Auto) 1.47 (1.18-3.74) K/mm3 Dane # (Auto) 0.83 H (0.24-0.36) K/mm3 Eos # (Auto) 0.13 (0.04-0.36) K/mm3 Baso # (Auto) 0.03 (0.01-0.08) K/mm3 Sodium 133 L (136-145) mEq/L Potassium 3.7 (3.5-5.1) mEq/L Chloride 97 L (98-107) mEq/L Carbon Dioxide 26 (21-32) mEq/L Anion Gap 13.7 (5-15) BUN 15 (7-18) mg/dL Creatinine 1.1 H (0.55-1.02) mg/dL Est Cr Clr Drug Dosing TNP Estimated GFR (MDRD) 47 (>60) mL/min BUN/Creatinine Ratio 13.6 L (14-18) Glucose 135 H (70-99) mg/dL Calcium 9.2 (8.5-10.1) mg/dL Total Bilirubin 0.4 (0.2-1.0) mg/dL AST 23 (15-37) U/L ALT 18 (14-59) U/L Alkaline Phosphatase 75 (46-116) U/L Total Protein 6.9 (6.4-8.2) g/dl Albumin 3.4 (3.4-5.0) g/dl Globulin 3.5 gm/dL Albumin/Globulin Ratio 1.0 (1-2) Lipase 140 (73-393) U/L Urine Color Yellow (Yellow) Urine Appearance Clear (Clear) Urine pH 7.0 (5.0-8.0) Ur Specific [place] 1.025 (1.005-1.030) Urine Protein Negative (Negative) Urine Glucose (UA) Negative (Negative) Urine Ketones Negative (Negative) Urine Occult Blood Negative (Negative) Urine Nitrite Negative (Negative) Urine Bilirubin Negative (Negative) Urine Urobilinogen 0.2 (0.2-1.0) Ur Leukocyte Esterase Negative (Negative) Meds: Medications Discontinued Medications Generic Name Dose Route Start Last Admin Trade Name Freq PRN Reason Stop Dose Admin Al Hydroxide/Mg Hydroxide 30 0 ml 10/04/20 21:15 10/04/20 21:37 ml/ Lidocaine HCl 15 ml GTUBE 10/04/20 21:16 30 ml ONETIME ONE Administration - Re-Assessments/Exams Free Text/Narrative Re-Assessment/Exam: 10/04/20 23:26 Attempted to do a Hemoccult on this lady and could not get any stool out of the vault attempted several times. What we did get was Hemoccult negative. Her last CBC that I have access to was done on 620 of this last year her H&H was 12.9 and 39.2% respectively this is dropped to 8.7 and 26.5% respectively. Patient did get some improvement with a GI cocktail. We will start Carafate and Protonix place the patient on observation. Situation reviewed with Dr. Eugene who is kind enough to accept. Departure - Departure Time of Disposition: 23:28 Disposition: Refer to Observation Clinical Impression: Upper GI bleed - Discharge Information Forms: ED Department Discharge Sepsis Event Note (ED) - Evaluation Sepsis Screening Result: No Definite Risk - Focused Exam Vital Signs: Vital Signs Temp Pulse Resp BP Pulse Ox 10/04/20 20:28 37.2 C 91 15 131/70 98
[2020-10-04] MEDS ORDERED: Alum Hydrox/Mag Hydrox/Simeth 30 ML, Lidocaine 2% 15 ML GTUBE ONE ×2 (21:15)
[2020-10-04] MEDS ORDERED: Pantoprazole 40 MG Vial IVPUSH ONE (23:25)
[2020-10-04] MEDS ORDERED: Sucralfate Suspension 1 GM/10 ML Cup PO ONE (23:25)
[2020-10-04] MEDS ORDERED: Dextrose 5%-0.45% NaCl 1,000 ML IV SCH (23:45)
[2020-10-05] MEDS ORDERED: Ondansetron 4 MG/2 ML SDV IVPUSH PRN (02:03)
[2020-10-05] MEDS ORDERED: Acetaminophen 325 MG/10.15 ML ML PEGTUBE PRN (02:06)
[2020-10-05] MEDS ORDERED: Dextrose 5%-0.45% NaCl 1,000 ML IV SCH (02:15)
[2020-10-05] MEDS ORDERED: Pantoprazole 40 MG Vial IVPUSH ONE (03:15)
[2020-10-05] MEDS ORDERED: Sucralfate Suspension 1 GM/10 ML Cup PO ONE (03:15)
[2020-10-05] MEDS: Sucralfate Suspension 1 GM/10 ML Cup PEGTUBE SCH ×4 (05:10→21:17)
[2020-10-05] MEDS ORDERED: Aluminum Hydroxide/Magnesium Hydroxide/Simethicone Susp 30 ML Cup GTUBE PRN (08:59)
[2020-10-05] MEDS ORDERED: Carboxymethylcellulose Sodium 1% Ophth Gel 15 ML Bottle EYEBOTH PRN (08:59)
[2020-10-05] MEDS ORDERED: Bisacodyl 10 MG Supp RECTAL PRN (08:59)
[2020-10-05] MEDS ORDERED: Pantoprazole 40 MG Vial IVPUSH SCH (09:00)
[2020-10-05] MEDS ORDERED: FLUoxetine 20 MG Cap GTUBE SCH (09:00)
[2020-10-05] MEDS: Calcium Carbonate/Vitamin D3 600 MG-200 Units Tab GTUBE SCH ×2 (10:22→21:16)
[2020-10-05] MEDS: Sennosides 8.6 MG Tab GTUBE SCH ×2 (10:23→21:17)
--- NOTE | 2020-10-05 12:16 | PCM.HP.2 ---
H&P History of Present Illness - General Date of Service: 10/05/20 Admit Problem/Dx: Admission Diagnosis/Problem Admission Diagnosis/Problem Anemia Source of Information: Patient, Half-Way Records History Limitations: Reports: No Limitations - History of Present Illness Initial Comments - Free Text/Narative: 89-year-old female who presented to the emergency department late last evening via [facility] ambulance. Patient is a resident of [facility]. Primary complaint was abdominal pain over the course of the last couple of days. Per the ER physician report it was in the upper abdomen and in the suprapubic area however per the patient's report, she is alert and oriented, it was more in her suprapubic area and mid abdomen. At the time she had denied any fever, chills, nausea, vomiting however she states she had been having some diarrhea. Of note the patient does have history of constipation per her retirement records. The patient is fed via G-tube because she has a history of dysphagia and has a history of numerous episodes of aspiration pneumonia. Nursing records also indicate that the patient is allowed to have a nectar thick, pured diet however she needs to be observed with all meals. Apparently the patient had vomited x1 at the retirement yesterday and it appeared to be similar to coffee-ground emesis. The patient does take a baby aspirin daily. She denies any urinary symptoms. She does carry a history of unspecified atrial fibrillation as well as a history of TIA and CVA however she is not on any chronic anticoagulant therapy. Patient was afebrile while in the emergency department with a temp of 37.2 C, pulse is 91, respiratory rate was 15, blood pressure 131/70, pulse ox was 98% on room air. Lab work was completed this did show a WBC of 8.06, hemoglobin of 8.7, hematocrit 26.5, platelet count 450 sodium was 133, potassium 3.7, chloride 97, carbon dioxide 26, anion gap 13.7, BUN 15, creatinine 1.1, GFR 47, glucose 135, calcium 9.2, total bilirubin 0.4, AST 23, ALT 18, alk phos 75, lipase was 140, urinalysis was completed and this was unremarkable. The ER physician did attempt to do a Hemoccult and could not get any stool out of the vault. This was attempted several times. But they did get was Hemoccult negative. Patient was given a GI cocktail and she did states she had some improvement of her abdominal pain at that time sure. Patient was started on Carafate 4 times daily and was given a dose of Protonix in the emergency department. Was subsequently admitted to [facility] floor under observation status. Bilateral Upper Abdomen Pain Score (Numeric/FACES): 7 - Related Data Allergies/Adverse Reactions: Allergies Allergy/AdvReac Type Severity Reaction Status Date / Time pneumococcal vaccine Allergy Airway Verified 10/05/20 10:00 Tightness Sulfa (Sulfonamide Allergy Hives Verified 10/05/20 10:00 Antibiotics) Home Medications: Home Meds Lisinopril 10 mg GTUBE DAILY 12/04/13 [History] Aspirin [Jimmy Chewable] 81 mg PO DAILY 12/05/18 [History] Acetaminophen 500 mg PO Q4HR PRN 11/27/19 [History] Calcium Carbonate/Vitamin D3 [Calcium Carbonate/Vitamin D 600 MG-200 Unit] 1 tab GTUBE BID 11/27/19 [History] FLUoxetine HCl [Fluoxetine HCl] 20 mg GTUBE DAILY 11/27/19 [History] Acetaminophen 650 mg GTUBE BEDTIME 10/04/20 [History] Bisacodyl [Gentle Laxative] 10 mg RC ASDIRECTED PRN 10/04/20 [History] Mag Hydrox/Aluminum Hyd/Simeth [Antacid Liquid] 20 ml GTUBE Q4H PRN 10/04/20 [History] Propylene Glycol/PEG 400/Pf [Systane 0.3-0.4% Eye Drop] 1 drop EYEBOTH Q6H PRN 10/04/20 [History] Sennosides [Senna] 8.6 mg GTUBE BID 10/04/20 [History] Past Medical History HEENT History: Reports: Cataract Cardiovascular History: Reports: Afib, Angina, CAD, High Cholesterol, Hypertension Respiratory History: Reports: Pneumonia, Recurrent Gastrointestinal History: Reports: Chronic Constipation, Diverticulosis 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 History: Reports: Musculoskeletal History: Reports: Neck Pain, Chronic Other Musculoskeletal History: 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, 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 Neurological History: Reports: CVA, Parkinson's Other Neuro History: 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 Psychiatric History: Reports: Depression Endocrine/Metabolic History: Reports: Diabetes, Type II Oncologic (Cancer) History: Reports: Breast, Colon - Past Surgical History HEENT Surgical History: Reports: Cataract Surgery, Tonsillectomy Cardiovascular Surgical History: Reports: Carotid Stents GI Surgical History: Reports: Colon, Other (See Below) Other GI Surgeries/Procedures: CA of colon with 17 inches removed, PEG tube Endocrine Surgical History: Reports: None Neurological Surgical History: Reports: None Musculoskeletal Surgical History: Reports: Hip Replacement Other Musculoskeletal Surgeries/Procedures:: total hip to left side. partial h ip to right side Oncologic Surgical History: Reports: Lumpectomy Other Oncologic Surgeries/Procedures: 17 inches of colon removed, right breast lumpectomy with 17 nodes removed Social & Family History - Family History Family Medical History: Unobtainable Cardiac: Reports: Heart Failure, Stent Respiratory: Reports: Asthma Psychiatric: Reports: Anxiety, Depression Endocrine/Metabolic: Reports: Diabetes, type II Oncologic: Reports: Colon - Tobacco Use Tobacco Use Status *Q: Unknown Ever Used Tobacco Second Hand Smoke Exposure: No - Caffeine Use Caffeine Use: Reports: Coffee - Recreational Drug Use Recreational Drug Use: No Drug Use in Last 12 Months: No - Living Situation & Occupation Living situation: Reports: , with Spouse Occupation: Retired H&P Review of Systems - Review of Systems: Review Of Systems: See Below General: Reports: No Symptoms. Denies: Fever, Chills, Decreased Appetite HEENT: Reports: Dysphasia (Patient has a history of dysphagia. She does receive tube feedings in addition to a. Diet with nectar thickened liquids.) Pulmonary: Reports: No Symptoms Cardiovascular: Reports: No Symptoms Gastrointestinal: Reports: Abdominal Pain (She did report suprapubic and mid abdominal pain), Diarrhea (Patient reports diarrhea 1 day ago), Nausea, Vomiting (Emesis x1 at the retirement prior to transport to the emergency department). Denies: Constipation Genitourinary: Reports: Incontinence. Denies: Dysuria, Frequency, Burning, Pain (Patient has chronic urinary incontinence she wears an incontinence brief.) Musculoskeletal: Reports: No Symptoms Skin: Reports: Pallor Psychiatric: Reports: No Symptoms Neurological: Reports: No Symptoms Hematologic/Lymphatic: Reports: Anemia (Patient had one emesis that was coffee- ground in appearance) Immunologic: Reports: No Symptoms Exam - Exam Exam: See Below - Vital Signs Vital Signs: Last Vital Signs Temp 99.7 F 10/05/20 07:32 Pulse 80 10/05/20 07:31 Resp 20 10/05/20 07:31 BP 115/75 10/05/20 07:31 Pulse Ox 93 L 10/05/20 07:31 Weight: 120 lb 4.8 oz - Exam Quality Assessment: DVT Prophylaxis (SCDs; patient will not be started on anticoagulant therapy as she is in with anemia). No: Supplemental Oxygen General: Alert, Oriented, Cooperative HEENT: Hearing Intact, Mucosa Moist & [place], Pupils Equal. No: Conjunctiva Clear (Conjunctival pallor) Neck: Supple, Trachea Midline Lungs: Clear to Auscultation, Normal Respiratory Effort Cardiovascular: Regular Rate, Regular Rhythm, Systolic Murmur (Grade 2) GI/Abdominal Exam: Normal Bowel Sounds, Soft, Non-Tender, No Distention (Female) Exam: Deferred Rectal (Female) Exam: Normal Exam, Normal Rectal Tone, Heme - Stool, Hemorrhoids. No: Black Stool, Bloody Stool, Fecal Impaction Back Exam: Normal Inspection, Full Range of Motion Extremities: Normal Inspection, Normal Range of Motion, Non-Tender, No Pedal Edema, Normal Capillary Refill Peripheral Pulses: 2+: Radial (L), Radial (R), Dorsalis Pedis (L), Dorsalis Pedis (R) Skin: Warm, Dry, Intact Neuro Extensive - Mental Status: Alert, Oriented x3, Normal Mood/Affect, Normal Cognition, Memory Intact Psychiatric: Alert, Normal Affect, Normal Mood - Patient Data Lab Results Last 24 hrs: Laboratory Results - last 24 hr 10/04/20 10/04/20 10/04/20 Range/Units 20:15 20:15 21:00 WBC 8.06 (3.98-10.04) K/mm3 RBC 2.84 L (3.98-5.22) M/mm3 Hgb 8.7 L D (11.2-15.7) gm/dl Hct 26.5 L (34.1-44.9) % MCV 93.3 (79.4-94.8) fl MCH 30.6 (25.6-32.2) pg MCHC 32.8 (32.2-35.5) g/dl RDW Std Deviation 42.3 (36.4-46.3) fL Plt Count 450 H D (182-369) K/mm3 MPV 8.5 L (9.4-12.3) fl Neut % (Auto) 69.4 (34.0-71.1) % Lymph % (Auto) 18.2 L (19.3-51.7) % [place] % (Auto) 10.3 (4.7-12.5) % Eos % (Auto) 1.6 (0.7-5.8) Baso % (Auto) 0.4 (0.1-1.2) % Neut # (Auto) 5.59 (1.56-6.13) K/mm3 Lymph # (Auto) 1.47 (1.18-3.74) K/mm3 [place] # (Auto) 0.83 H (0.24-0.36) K/mm3 Eos # (Auto) 0.13 (0.04-0.36) K/mm3 Baso # (Auto) 0.03 (0.01-0.08) K/mm3 Manual Slide Review Sodium 133 L (136-145) mEq/L Potassium 3.7 (3.5-5.1) mEq/L Chloride 97 L (98-107) mEq/L Carbon Dioxide 26 (21-32) mEq/L Anion Gap 13.7 (5-15) BUN 15 (7-18) mg/dL Creatinine 1.1 H (0.55-1.02) mg/dL Est Cr Clr Drug Dosing TNP Estimated GFR (MDRD) 47 (>60) mL/min BUN/Creatinine Ratio 13.6 L (14-18) Glucose 135 H (70-99) mg/dL Calcium 9.2 (8.5-10.1) mg/dL Magnesium (1.8-2.4) mg/dL Total Bilirubin 0.4 (0.2-1.0) mg/dL AST 23 (15-37) U/L ALT 18 (14-59) U/L Alkaline Phosphatase 75 (46-116) U/L Total Protein 6.9 (6.4-8.2) g/dl Albumin 3.4 (3.4-5.0) g/dl Globulin 3.5 gm/dL Albumin/Globulin Ratio 1.0 (1-2) Lipase 140 (73-393) U/L Urine Color Yellow (Yellow) Urine Appearance Clear (Clear) Urine pH 7.0 (5.0-8.0) Ur Specific [place] 1.025 (1.005-1.030) Urine Protein Negative (Negative) Urine Glucose (UA) Negative (Negative) Urine Ketones Negative (Negative) Urine Occult Blood Negative (Negative) Urine Nitrite Negative (Negative) Urine Bilirubin Negative (Negative) Urine Urobilinogen 0.2 (0.2-1.0) Ur Leukocyte Esterase Negative (Negative) SARS-CoV-2 RNA (KUMAR) (NEGATIVE) MRSA (PCR) 10/05/20 10/05/20 10/05/20 Range/Units 00:03 01:53 10:50 WBC 14.60 H (3.98-10.04) K/mm3 RBC 2.86 L (3.98-5.22) M/mm3 Hgb 8.8 L (11.2-15.7) gm/dl Hct 27.3 L (34.1-44.9) % MCV 95.5 H (79.4-94.8) fl MCH 30.8 (25.6-32.2) pg MCHC 32.2 (32.2-35.5) g/dl RDW Std Deviation 43.3 (36.4-46.3) fL Plt Count 389 H (182-369) K/mm3 MPV 8.3 L (9.4-12.3) fl Neut % (Auto) 82.7 H (34.0-71.1) % Lymph % (Auto) 9.5 L (19.3-51.7) % [place] % (Auto) 7.5 (4.7-12.5) % Eos % (Auto) 0.1 L (0.7-5.8) Baso % (Auto) 0.1 (0.1-1.2) % Neut # (Auto) 12.07 H (1.56-6.13) K/mm3 Lymph # (Auto) 1.39 (1.18-3.74) K/mm3 [place] # (Auto) 1.09 H (0.24-0.36) K/mm3 Eos # (Auto) 0.01 L (0.04-0.36) K/mm3 Baso # (Auto) 0.02 (0.01-0.08) K/mm3 Manual Slide Review Normal smear Sodium (136-145) mEq/L Potassium (3.5-5.1) mEq/L Chloride (98-107) mEq/L Carbon Dioxide (21-32) mEq/L Anion Gap (5-15) BUN (7-18) mg/dL Creatinine (0.55-1.02) mg/dL Est Cr Clr Drug Dosing Estimated GFR (MDRD) (>60) mL/min BUN/Creatinine Ratio (14-18) Glucose (70-99) mg/dL Calcium (8.5-10.1) mg/dL Magnesium (1.8-2.4) mg/dL Total Bilirubin (0.2-1.0) mg/dL AST (15-37) U/L ALT (14-59) U/L Alkaline Phosphatase (46-116) U/L Total Protein (6.4-8.2) g/dl Albumin (3.4-5.0) g/dl Globulin gm/dL Albumin/Globulin Ratio (1-2) Lipase (73-393) U/L Urine Color (Yellow) Urine Appearance (Clear) Urine pH (5.0-8.0) Ur Specific [place] (1.005-1.030) Urine Protein (Negative) Urine Glucose (UA) (Negative) Urine Ketones (Negative) Urine Occult Blood (Negative) Urine Nitrite (Negative) Urine Bilirubin (Negative) Urine Urobilinogen (0.2-1.0) Ur Leukocyte Esterase (Negative) SARS-CoV-2 RNA (KUMAR) Negative (NEGATIVE) MRSA (PCR) Negative 10/05/20 Range/Units 10:50 WBC (3.98-10.04) K/mm3 RBC (3.98-5.22) M/mm3 Hgb (11.2-15.7) gm/dl Hct (34.1-44.9) % MCV (79.4-94.8) fl MCH (25.6-32.2) pg MCHC (32.2-35.5) g/dl RDW Std Deviation (36.4-46.3) fL Plt Count (182-369) K/mm3 MPV (9.4-12.3) fl Neut % (Auto) (34.0-71.1) % Lymph % (Auto) (19.3-51.7) % [place] % (Auto) (4.7-12.5) % Eos % (Auto) (0.7-5.8) Baso % (Auto) (0.1-1.2) % Neut # (Auto) (1.56-6.13) K/mm3 Lymph # (Auto) (1.18-3.74) K/mm3 [place] # (Auto) (0.24-0.36) K/mm3 Eos # (Auto) (0.04-0.36) K/mm3 Baso # (Auto) (0.01-0.08) K/mm3 Manual Slide Review Sodium 135 L (136-145) mEq/L Potassium 4.1 (3.5-5.1) mEq/L Chloride 99 (98-107) mEq/L Carbon Dioxide 28 (21-32) mEq/L Anion Gap 12.1 (5-15) BUN 13 (7-18) mg/dL Creatinine 1.1 H (0.55-1.02) mg/dL Est Cr Clr Drug Dosing 27.42 Estimated GFR (MDRD) 47 (>60) mL/min BUN/Creatinine Ratio 11.8 L (14-18) Glucose 175 H (70-99) mg/dL Calcium 8.5 (8.5-10.1) mg/dL Magnesium 2.0 (1.8-2.4) mg/dL Total Bilirubin 0.6 (0.2-1.0) mg/dL AST 20 (15-37) U/L ALT 19 (14-59) U/L Alkaline Phosphatase 65 (46-116) U/L Total Protein 6.5 (6.4-8.2) g/dl Albumin 3.1 L (3.4-5.0) g/dl Globulin 3.4 gm/dL Albumin/Globulin Ratio 0.9 L (1-2) Lipase (73-393) U/L Urine Color (Yellow) Urine Appearance (Clear) Urine pH (5.0-8.0) Ur Specific [place] (1.005-1.030) Urine Protein (Negative) Urine Glucose (UA) (Negative) Urine Ketones (Negative) Urine Occult Blood (Negative) Urine Nitrite (Negative) Urine Bilirubin (Negative) Urine Urobilinogen (0.2-1.0) Ur Leukocyte Esterase (Negative) SARS-CoV-2 RNA (KUMAR) (NEGATIVE) MRSA (PCR) Result Diagrams: 10/05/20 10:50 10/05/20 10:50 Sepsis Event Note - Evaluation Sepsis Screening Result: No Definite Risk - Focused Exam Vital Signs: Vital Signs Temp Pulse Resp BP Pulse Ox 10/05/20 07:32 99.7 F 10/05/20 07:31 80 20 115/75 93 L 10/05/20 01:59 98.8 F 98 20 132/49 L 95 - Problem List (1) Dysphagia SNOMED Code(s): 72530423, 016070829 ICD Code: R13.10 - DYSPHAGIA, UNSPECIFIED Status: Chronic Priority: Medium Current Visit: Yes Qualifiers: Dysphagia type: unspecified Qualified Code(s): R13.10 - Dysphagia, unspecified (2) Upper GI bleed SNOMED Code(s): 79712053 ICD Code: K92.2 - GASTROINTESTINAL HEMORRHAGE, UNSPECIFIED Status: Acute Priority: High Current Visit: Yes (3) Hyponatremia SNOMED Code(s): 94327200 ICD Code: E87.1 - HYPO-OSMOLALITY AND HYPONATREMIA Status: Acute Current Visit: Yes (4) Cerebrovascular accident SNOMED Code(s): 026574796 ICD Code: I63.9 - CEREBRAL INFARCTION, UNSPECIFIED Status: Resolved Priority: Low Current Visit: No Qualifiers: CVA mechanism: unspecified Qualified Code(s): I63.9 - Cerebral infarction, unspecified (5) TIA (transient ischemic attack) SNOMED Code(s): 178716037, 847780892 ICD Code: G45.9 - TRANSIENT CEREBRAL ISCHEMIC ATTACK, UNSPECIFIED Status: Resolved Priority: Low Current Visit: No Qualifiers: Transient cerebral ischemia type: unspecified Qualified Code(s): G45.9 - Transient cerebral ischemic attack, unspecified Problem List Initiated/Reviewed/Updated: Yes Orders Last 24hrs: Active Orders 24 hr Category Date Time Status Patient Status [ADT] Routine ADT 10/04/20 23:31 Active Activity as Tolerated [RC] .Routine Care 10/05/20 02:08 Active Antiembolic Devices [RC] PER UNIT ROUTINE Care 10/05/20 09:02 Active Consult to Case Management/Screen Repairer Crusher [CONS] Cons 10/05/20 09:03 Active Routine Consult to Assistant Scientist [CONS] Routine Cons 10/05/20 09:03 Active OT Evaluation and Treatment [CONS] Routine Cons 10/05/20 11:09 Active PT Evaluation and Treatment [CONS] Routine Cons 10/05/20 11:09 Active Adult Diet w Tube Feeding [DIET] Diet 10/05/20 Dinner Active NPO Now [Nothing per Oral Now Diet] [DIET] Diet 10/05/20 Breakfast Active Acetaminophen [Tylenol] Med 10/05/20 02:06 Active 650 mg PEGTUBE Q4H PRN Alum Hydrox/Mag Hydrox/Simeth [Mag-Al Plus] Med 10/05/20 08:59 Active 30 ml GTUBE Q4H PRN Calcium Carbonate/Vitamin D3 [Calcium Carbonate/Vitamin Med 10/05/20 09:00 Active D 600 MG-200 Unit] 1 tab GTUBE BID Carboxymethylcellulose Sodium [Refresh Liquigel 1%] Med 10/05/20 08:59 Active 1 ml EYEBOTH Q6H PRN Dextrose 5%-0.45% NaCl [Dextrose 5%-1/2 NS] 1,000 ml Med 10/05/20 02:15 Active IV ASDIRECTED FLUoxetine [PROzac] Med 10/06/20 09:00 Active 20 mg GTUBE DAILY Ondansetron [Zofran] Med 10/05/20 02:03 Active 4 mg IVPUSH Q6H PRN Pantoprazole [ProTONIX IV] Med 10/05/20 21:00 Active 40 mg IVPUSH Q12H Sennosides [Senna] Med 10/05/20 09:00 Active 8.6 mg GTUBE BID Sucralfate [Carafate] Med 10/05/20 07:00 Active 1 gm PEGTUBE QIDACANDBED bisacodyL [Dulcolax] Med 10/05/20 08:59 Active 10 mg RECTAL ASDIRECTED PRN lisinopriL [Prinivil] Med 10/05/20 13:00 Active 10 mg GTUBE DAILY SCD [Sequential Compression Device] [OM.PC] Routine Oth 10/05/20 09:01 Ordered Code Status [Resuscitation Status] Routine Resus Stat 10/05/20 02:09 Ordered Medication Orders Acetaminophen (Acetaminophen 325 Mg/10.15 Ml Ml) 650 mg PEGTUBE Q4H PRN PRN Reason: Pain/Fever Al Hydroxide/Mg Hydroxide (Aluminum Hydroxide/Magnesium Hydroxide/Simethicone Susp 30 Ml Cup) 30 ml GTUBE Q4H PRN PRN Reason: Heartburn Artificial Tears (Carboxymethylcellulose Sodium 1% Ophth Gel 15 Ml Bottle) 1 ml EYEBOTH Q6H PRN PRN Reason: Dry Eyes Bisacodyl (Bisacodyl 10 Mg Supp) 10 mg RECTAL ASDIRECTED PRN PRN Reason: Constipation Calcium Carbonate (Calcium Carbonate/Vitamin D3 600 Mg-200 Units Tab) 1 tab GTUBE BID [facility] Last Admin: 10/05/20 10:22 Dose: 1 tab Documented by: CAPRICE Fluoxetine HCl (Fluoxetine 20 Mg Cap Ptom) 20 mg GTUBE DAILY [facility] Dextrose/Sodium Chloride (Dextrose 5%-1/2 Ns) 1,000 mls @ 75 mls/hr IV ASDIRECTED [facility] Last Admin: 10/05/20 02:14 Dose: 75 mls/hr Documented by: FARRUKH Lisinopril (Lisinopril 10 Mg Tab Ptom) 10 mg GTUBE DAILY [facility] Ondansetron HCl (Ondansetron 4 Mg/2 Ml Sdv) 4 mg IVPUSH Q6H PRN PRN Reason: Nausea Last Admin: 10/05/20 02:17 Dose: 4 mg Documented by: FARRUKH Pantoprazole Sodium (Pantoprazole 40 Mg Vial) 40 mg IVPUSH Q12H [facility] Senna (Sennosides 8.6 Mg Tab) 8.6 mg GTUBE BID [facility] Last Admin: 10/05/20 10:23 Dose: 8.6 mg Documented by: CAPRICE Sucralfate (Sucralfate Suspension 1 Gm/10 Ml Cup) 1 gm PEGTUBE QIDACANDBED [facility] Last Admin: 10/05/20 10:22 Dose: 1 gm Documented by: Admin: 10/05/20 05:10 Dose: 1 gm Documented by: FARRUKH Assessment/Plan Comment:: 10/05/20 * 89-year-old female presents the emergency department from [facility] with abdominal pain and coffee-ground emesis x1 * States that she developed the abdominal pain about 2 days ago. Pain is located in the suprapubic and mid abdomen region. * ED physician did try to obtain fecal occult stool however there was no stool in the rectal vault; the sample that was obtained was negative * Patient is currently only taking 1 baby aspirin daily; she does have a history of intermittent atrial fibrillation, TIA, and CVA * Currently receiving tube feedings via PEG tube due to dysphagia and recurrent aspiration pneumonia * Currently on pured diet with nectar thickened liquids she does need to be observed during all meals; * Labs in ED: WBC 8.06 Hgb 8.7 Hct 26.5 PLT 450 Na 133 K 3.7 Chl 97 Anion Gap 13.7 BUN 15 Cre 1.1 Glu 135 Ca 9.2 Total bili 0.4 AST 23 ALT 18 Alk Phos 75 Lipase 140 UA was unremarkable Hemoccult was negative however there was not stool in the rectal vault Plan: Dysphagia -Patient does have a history of CVA in the past and has been receiving tube feedings per PEG tube as a result -Per the retirement records, the patient does receive pured diet with nectar thickened liquidsshe is observed with feeding during all meals -patient was initially NPO, however we will resume tube feedings -consult die operator Upper GI bleed -Patient did have 1 coffee-ground emesis, however she has had no further bouts of emesis -Hemoglobin in the emergency department was 8.7 -Patient was started on Carafate 4 times daily -Patient was given a dose of Protonix 40 mg IV in the emergency department; start Protonix 40mg IV BID -repeat labs today and in the am; trend H&H -repeat H&H at 1800 Hyponatremia -D5 1/2 NS infusing; will continue this until the patient is started on her tube feedings Cerebrovascular accident; TIA (transient ischemic attack) -not currently on anticoagulants; takes a 81mg baby ASA daily-this will be held for now Code Status: DNR PCP: Dr. Christiansen DVT Prophylaxis: SCD's Disposition: Admitted to [facility] observation status; will likely discharge back to [facility] in the next day or two; PT/OT to eval and treat; visitor services information assistant for discharge planning Repeat assessment: -pt denies any abdominal pain -hemoglobin 8.8 late this morning -will begin tube feedings this evening as per the retirement Labs: WBC 8.06->14.60 Hgb 8.7->8.8 Hct 26.5->27.3 PLT 450->389 Na 133->135 K 3.7->4.1 Chl 97->99 Anion Gap 13.7->12.1 BUN 15->13 Cre 1.1->1.1 Glu 135->175 Ca 9.2->8.5 Total bili 0.4->0.6 AST 23->20 ALT 18->19 Alk Phos 75->65 Lipase 140 Hemoccult was negative -WBC is elevated. Question if this is due to a stress response as UA was negative and abdominal pain has resolved. Will order a CXR per Dr. Jurado's recommendations. - Mortality Measure Prognosis:: Good
[2020-10-05] MEDS ORDERED: Lisinopril 10 MG Tab **PTOM GTUBE SCH (13:00)
[2020-10-05] MEDS ORDERED: Non-Formulary Medication 1 Each (Acetaminophen 500 MG Tablet) PO PRN (13:51)
[2020-10-05] MEDS ORDERED: Sodium Chloride 0.45% 1,000 ML IV SCH (14:00)
[2020-10-05] MEDS: Lisinopril 10 MG Tab **PTOM GTUBE SCH (16:24)
[2020-10-05] MEDS: Pantoprazole 40 MG Vial IVPUSH SCH (21:16)
[2020-10-05] MEDS: Acetaminophen 325 MG Tab GTUBE SCH (21:16)
[2020-10-06] MEDS: Sucralfate Suspension 1 GM/10 ML Cup PEGTUBE SCH ×4 (06:18→21:20)
--- NOTE | 2020-10-06 06:38 | CR ---
Chest: Portable view of the chest is obtained. Comparison: Prior chest x-ray of 05/10/18. Heart size is normal. Mild tortuosity of the thoracic aorta is seen. Slight parenchymal density is seen within the left inferior perihilar region. Lungs otherwise are clear. Surgical clips are seen within the right axillary region. Impression: 1.. Questionable mild focal bronchitis within the inferior left perihilar region. Please correlate if this matches clinically. 2. Nothing acute is otherwise seen. Diagnostic code #3
[2020-10-06] MEDS ORDERED: Sodium Chloride 0.9% 250 ML IV SCH (08:45)
[2020-10-06] MEDS: Calcium Carbonate/Vitamin D3 600 MG-200 Units Tab GTUBE SCH ×2 (08:50→21:20)
[2020-10-06] MEDS: Dextrose 5%-0.9% NaCl 1,000 ML IV SCH ×2 (08:50→21:22)
[2020-10-06] MEDS: Pantoprazole 40 MG Vial IVPUSH SCH ×2 (08:51→21:20)
[2020-10-06] MEDS: Sennosides 8.6 MG Tab GTUBE SCH ×2 (08:51→20:18)
[2020-10-06] MEDS: Lisinopril 10 MG Tab **PTOM GTUBE SCH (08:52)
[2020-10-06] MEDS ORDERED: FLUOXETINE 20 MG GTUBE SCH (09:00)
--- NOTE | 2020-10-06 11:06 | PCM.PN ---
<Lisha Vang M - Last Filed: 10/06/20 11:13> - General Info Date of Service: 10/06/20 Admission Dx/Problem (Free Text): Admission Diagnosis/Problem Admission Diagnosis/Problem Anemia Subjective Update: Seble reports that she is feeling much better today than yesterday. Her hemoglobin has dropped to 7.6. However, she has not hypotensive or tachycardic. She denies any abdominal pain however with palpation she does report some discomfort to the mid abdomen. Functional Status: Reports: Pain Controlled, Tolerating Diet (Patient does do a significant amount of coughing with her meals, however the dietitian reported that she has been cued to do this by speech therapy to prevent aspiration.), Ambulating (Physical therapy), Urinating - Review of Systems General: Reports: No Symptoms HEENT: Reports: Dysphasia (History of) Pulmonary: Reports: No Symptoms Cardiovascular: Reports: No Symptoms Gastrointestinal: Reports: Abdominal Pain (Reports abdominal pain to mid abdomen with palpation). Denies: Constipation, Decreased Appetite, Diarrhea, Melena, Nausea, Vomiting Genitourinary: Reports: Incontinence (Chronic) Musculoskeletal: Reports: No Symptoms Skin: Reports: Pallor Neurological: Reports: No Symptoms Psychiatric: Reports: No Symptoms - Patient Data Vitals - Most Recent: Last Vital Signs Temp 97.9 F 10/06/20 06:23 Pulse 67 10/06/20 06:23 Resp 14 10/06/20 06:23 BP 121/67 10/06/20 08:52 Pulse Ox 92 L 10/06/20 06:23 Weight - Most Recent: 121 lb 3.2 oz I&O - Last 24 Hours: Intake & Output 10/05/20 10/06/20 10/06/20 22:59 06:59 14:59 Intake Total 1152 1080 225 Output Total 400 400 Balance 752 680 225 Lab Results Last 24 Hours: Laboratory Results - last 24 hr 10/05/20 10/05/20 10/05/20 Range/Units 10:50 10:50 13:57 WBC 14.60 H (3.98-10.04) K/mm3 RBC 2.86 L (3.98-5.22) M/mm3 Hgb 8.8 L (11.2-15.7) gm/dl Hct 27.3 L (34.1-44.9) % MCV 95.5 H (79.4-94.8) fl MCH 30.8 (25.6-32.2) pg MCHC 32.2 (32.2-35.5) g/dl RDW Std Deviation 43.3 (36.4-46.3) fL Plt Count 389 H (182-369) K/mm3 MPV 8.3 L (9.4-12.3) fl Neut % (Auto) 82.7 H (34.0-71.1) % Lymph % (Auto) 9.5 L (19.3-51.7) % [place] % (Auto) 7.5 (4.7-12.5) % Eos % (Auto) 0.1 L (0.7-5.8) Baso % (Auto) 0.1 (0.1-1.2) % Neut # (Auto) 12.07 H (1.56-6.13) K/mm3 Lymph # (Auto) 1.39 (1.18-3.74) K/mm3 [place] # (Auto) 1.09 H (0.24-0.36) K/mm3 Eos # (Auto) 0.01 L (0.04-0.36) K/mm3 Baso # (Auto) 0.02 (0.01-0.08) K/mm3 Manual Slide Review Normal smear Sodium 135 L (136-145) mEq/L Potassium 4.1 (3.5-5.1) mEq/L Chloride 99 (98-107) mEq/L Carbon Dioxide 28 (21-32) mEq/L Anion Gap 12.1 (5-15) BUN 13 (7-18) mg/dL Creatinine 1.1 H (0.55-1.02) mg/dL Est Cr Clr Drug Dosing 27.42 mL/min Estimated GFR (MDRD) 47 (>60) mL/min BUN/Creatinine Ratio 11.8 L (14-18) Glucose 175 H (70-99) mg/dL POC Glucose 150 H (70-99) mg/dL Calcium 8.5 (8.5-10.1) mg/dL Magnesium 2.0 (1.8-2.4) mg/dL Total Bilirubin 0.6 (0.2-1.0) mg/dL AST 20 (15-37) U/L ALT 19 (14-59) U/L Alkaline Phosphatase 65 (46-116) U/L Total Protein 6.5 (6.4-8.2) g/dl Albumin 3.1 L (3.4-5.0) g/dl Globulin 3.4 gm/dL Albumin/Globulin Ratio 0.9 L (1-2) Blood Type Gel Antibody Screen Crossmatch 10/05/20 10/05/20 10/05/20 Range/Units 17:11 18:04 18:04 WBC (3.98-10.04) K/mm3 RBC (3.98-5.22) M/mm3 Hgb 8.2 L (11.2-15.7) gm/dl Hct 25.5 L (34.1-44.9) % MCV (79.4-94.8) fl MCH (25.6-32.2) pg MCHC (32.2-35.5) g/dl RDW Std Deviation (36.4-46.3) fL Plt Count (182-369) K/mm3 MPV (9.4-12.3) fl Neut % (Auto) (34.0-71.1) % Lymph % (Auto) (19.3-51.7) % [place] % (Auto) (4.7-12.5) % Eos % (Auto) (0.7-5.8) Baso % (Auto) (0.1-1.2) % Neut # (Auto) (1.56-6.13) K/mm3 Lymph # (Auto) (1.18-3.74) K/mm3 [place] # (Auto) (0.24-0.36) K/mm3 Eos # (Auto) (0.04-0.36) K/mm3 Baso # (Auto) (0.01-0.08) K/mm3 Manual Slide Review Sodium (136-145) mEq/L Potassium (3.5-5.1) mEq/L Chloride (98-107) mEq/L Carbon Dioxide (21-32) mEq/L Anion Gap (5-15) BUN (7-18) mg/dL Creatinine (0.55-1.02) mg/dL Est Cr Clr Drug Dosing mL/min Estimated GFR (MDRD) (>60) mL/min BUN/Creatinine Ratio (14-18) Glucose (70-99) mg/dL POC Glucose 128 H (70-99) mg/dL Calcium (8.5-10.1) mg/dL Magnesium (1.8-2.4) mg/dL Total Bilirubin (0.2-1.0) mg/dL AST (15-37) U/L ALT (14-59) U/L Alkaline Phosphatase (46-116) U/L Total Protein (6.4-8.2) g/dl Albumin (3.4-5.0) g/dl Globulin gm/dL Albumin/Globulin Ratio (1-2) Blood Type Gel Antibody Screen Crossmatch 10/06/20 10/06/20 10/06/20 Range/Units 05:39 05:39 05:39 WBC 6.91 (3.98-10.04) K/mm3 RBC 2.52 L (3.98-5.22) M/mm3 Hgb 7.8 L (11.2-15.7) gm/dl Hct 24.5 L (34.1-44.9) % MCV 97.2 H (79.4-94.8) fl MCH 31.0 (25.6-32.2) pg MCHC 31.8 L (32.2-35.5) g/dl RDW Std Deviation 43.9 (36.4-46.3) fL Plt Count 345 (182-369) K/mm3 MPV 8.5 L (9.4-12.3) fl Neut % (Auto) 65.5 (34.0-71.1) % Lymph % (Auto) 21.4 (19.3-51.7) % [place] % (Auto) 8.4 (4.7-12.5) % Eos % (Auto) 4.2 (0.7-5.8) Baso % (Auto) 0.4 (0.1-1.2) % Neut # (Auto) 4.52 (1.56-6.13) K/mm3 Lymph # (Auto) 1.48 (1.18-3.74) K/mm3 [place] # (Auto) 0.58 H (0.24-0.36) K/mm3 Eos # (Auto) 0.29 (0.04-0.36) K/mm3 Baso # (Auto) 0.03 (0.01-0.08) K/mm3 Manual Slide Review Abnormal smear Sodium 134 L (136-145) mEq/L Potassium 4.2 (3.5-5.1) mEq/L Chloride 99 (98-107) mEq/L Carbon Dioxide 30 (21-32) mEq/L Anion Gap 9.2 (5-15) BUN 19 H (7-18) mg/dL Creatinine 1.1 H (0.55-1.02) mg/dL Est Cr Clr Drug Dosing 27.18 mL/min Estimated GFR (MDRD) 47 (>60) mL/min BUN/Creatinine Ratio 17.3 (14-18) Glucose 155 H (70-99) mg/dL POC Glucose (70-99) mg/dL Calcium 8.1 L (8.5-10.1) mg/dL Magnesium 2.1 (1.8-2.4) mg/dL Total Bilirubin 0.3 (0.2-1.0) mg/dL AST 19 (15-37) U/L ALT 18 (14-59) U/L Alkaline Phosphatase 68 (46-116) U/L Total Protein 5.9 L (6.4-8.2) g/dl Albumin 2.7 L (3.4-5.0) g/dl Globulin 3.2 gm/dL Albumin/Globulin Ratio 0.8 L (1-2) Blood Type O POSITIVE Gel Antibody Screen Negative Crossmatch See Detail 10/06/20 Range/Units 06:20 WBC (3.98-10.04) K/mm3 RBC (3.98-5.22) M/mm3 Hgb (11.2-15.7) gm/dl Hct (34.1-44.9) % MCV (79.4-94.8) fl MCH (25.6-32.2) pg MCHC (32.2-35.5) g/dl RDW Std Deviation (36.4-46.3) fL Plt Count (182-369) K/mm3 MPV (9.4-12.3) fl Neut % (Auto) (34.0-71.1) % Lymph % (Auto) (19.3-51.7) % [place] % (Auto) (4.7-12.5) % Eos % (Auto) (0.7-5.8) Baso % (Auto) (0.1-1.2) % Neut # (Auto) (1.56-6.13) K/mm3 Lymph # (Auto) (1.18-3.74) K/mm3 [place] # (Auto) (0.24-0.36) K/mm3 Eos # (Auto) (0.04-0.36) K/mm3 Baso # (Auto) (0.01-0.08) K/mm3 Manual Slide Review Sodium (136-145) mEq/L Potassium (3.5-5.1) mEq/L Chloride (98-107) mEq/L Carbon Dioxide (21-32) mEq/L Anion Gap (5-15) BUN (7-18) mg/dL Creatinine (0.55-1.02) mg/dL Est Cr Clr Drug Dosing mL/min Estimated GFR (MDRD) (>60) mL/min BUN/Creatinine Ratio (14-18) Glucose (70-99) mg/dL POC Glucose 169 H (70-99) mg/dL Calcium (8.5-10.1) mg/dL Magnesium (1.8-2.4) mg/dL Total Bilirubin (0.2-1.0) mg/dL AST (15-37) U/L ALT (14-59) U/L Alkaline Phosphatase (46-116) U/L Total Protein (6.4-8.2) g/dl Albumin (3.4-5.0) g/dl Globulin gm/dL Albumin/Globulin Ratio (1-2) Blood Type Gel Antibody Screen Crossmatch Robin Results Last 24 Hours: Microbiology 10/05/20 13:12 Stool Occult Blood (ROBIN) - Final Stool / Feces Med Orders - Current: Current Medications Acetaminophen (Acetaminophen 325 Mg/10.15 Ml Ml) 650 mg PEGTUBE Q4H PRN PRN Reason: Pain/Fever Acetaminophen (Acetaminophen 325 Mg Tab) 650 mg GTUBE BEDTIME JULIANA Last Admin: 10/05/20 21:16 Dose: 650 mg Documented by: Al Hydroxide/Mg Hydroxide (Aluminum Hydroxide/Magnesium Hydroxide/Simethicone Susp 30 Ml Cup) 30 ml GTUBE Q4H PRN PRN Reason: Heartburn Artificial Tears (Carboxymethylcellulose Sodium 1% Ophth Gel 15 Ml Bottle) 1 ml EYEBOTH Q6H PRN PRN Reason: Dry Eyes Bisacodyl (Bisacodyl 10 Mg Supp) 10 mg RECTAL ASDIRECTED PRN PRN Reason: Constipation Calcium Carbonate (Calcium Carbonate/Vitamin D3 600 Mg-200 Units Tab) 1 tab GTUBE BID [facility] Last Admin: 10/06/20 08:50 Dose: 1 tab Documented by: Fluoxetine HCl (Fluoxetine 20 Mg Cap Ptom) 20 mg GTUBE DAILY [facility] Last Admin: 10/06/20 08:52 Dose: 20 mg Documented by: Dextrose/Sodium Chloride (Dextrose 5%-Normal Saline) 1,000 mls @ 100 mls/hr IV ASDIRECTED [facility] Last Admin: 10/06/20 08:50 Dose: 100 mls/hr Documented by: Sodium Chloride (Normal Saline) 250 mls @ 50 mls/hr IV ASDIRECTED [facility] Lisinopril (Lisinopril 10 Mg Tab Ptom) 10 mg GTUBE DAILY [facility] Last Admin: 10/06/20 08:52 Dose: 10 mg Documented by: Ondansetron HCl (Ondansetron 4 Mg/2 Ml Sdv) 4 mg IVPUSH Q6H PRN PRN Reason: Nausea Last Admin: 10/05/20 02:17 Dose: 4 mg Documented by: Pantoprazole Sodium (Pantoprazole 40 Mg Vial) 40 mg IVPUSH Q12H [facility] Last Admin: 10/06/20 08:51 Dose: 40 mg Documented by: Senna (Sennosides 8.6 Mg Tab) 8.6 mg GTUBE BID [facility] Last Admin: 10/06/20 08:51 Dose: 8.6 mg Documented by: Sucralfate (Sucralfate Suspension 1 Gm/10 Ml Cup) 1 gm PEGTUBE QIDACANDBED [facility] Last Admin: 10/06/20 10:44 Dose: 1 gm Documented by: Discontinued Medications Al Hydroxide/Mg Hydroxide 30 (ml/ Lidocaine HCl 15 ml) 0 ml GTUBE ONETIME ONE Stop: 10/04/20 21:16 Last Admin: 10/04/20 21:37 Dose: 30 ml Documented by: Fluoxetine HCl (Fluoxetine 20 Mg Cap) 20 mg GTUBE DAILY [facility] Last Admin: 10/05/20 10:32 Dose: 20 mg Documented by: Dextrose/Sodium Chloride (Dextrose 5%-1/2 Ns) 1,000 mls @ 75 mls/hr IV ASDIRECTED [facility] Dextrose/Sodium Chloride (Dextrose 5%-1/2 Ns) 1,000 mls @ 75 mls/hr IV ASDIRECTED [facility] Last Admin: 10/05/20 02:14 Dose: 75 mls/hr Documented by: Sodium Chloride (Sodium Chloride 0.45%) 1,000 mls @ 100 mls/hr IV ASDIRECTED [facility] Lisinopril (Lisinopril 10 Mg Tab Ptom) 10 mg GTUBE DAILY [facility] Last Admin: 10/05/20 15:45 Dose: Not Given Documented by: Pantoprazole Sodium (Pantoprazole 40 Mg Vial) 40 mg IVPUSH ONETIME ONE Stop: 10/05/20 03:16 Last Admin: 10/05/20 05:08 Dose: 40 mg Documented by: Pantoprazole Sodium (Pantoprazole 40 Mg Vial) 40 mg IVPUSH DAILY [facility] Last Admin: 10/05/20 10:22 Dose: 40 mg Documented by: Sucralfate (Sucralfate Suspension 1 Gm/10 Ml Cup) 1 gm PO ONETIME ONE Stop: 10/05/20 03:16 Last Admin: 10/05/20 05:11 Dose: Not Given Documented by: - Exam Quality Assessment: DVT Prophylaxis (SCDs). No: Supplemental Oxygen General: Alert, Oriented, Cooperative, No Acute Distress HEENT: Pupils Equal, Mucous Membr. Moist/[place] Neck: Supple, Trachea Midline Lungs: Clear to Auscultation, Normal Respiratory Effort Cardiovascular: Regular Rate, Regular Rhythm, Murmurs (Grade 2 systolic) GI/Abdominal Exam: Normal Bowel Sounds, Soft, No Distention, Tender (Mid abdomen with palpation) (Female) Exam: Deferred Back Exam: Normal Inspection Extremities: Normal Inspection, Non-Tender, No Pedal Edema, Normal Capillary Refill Peripheral Pulses: 2+: Radial (L), Radial (R), Dorsalis Pedis (L), Dorsalis Pedis (R) Skin: Warm, Dry, Intact Neurological: No New Focal Deficit Psy/Mental Status: Alert, Normal Affect, Normal Mood - Patient Data Lab Results Last 24 hrs: Laboratory Results - last 24 hr 10/05/20 10/05/20 10/05/20 Range/Units 10:50 10:50 13:57 WBC 14.60 H (3.98-10.04) K/mm3 RBC 2.86 L (3.98-5.22) M/mm3 Hgb 8.8 L (11.2-15.7) gm/dl Hct 27.3 L (34.1-44.9) % MCV 95.5 H (79.4-94.8) fl MCH 30.8 (25.6-32.2) pg MCHC 32.2 (32.2-35.5) g/dl RDW Std Deviation 43.3 (36.4-46.3) fL Plt Count 389 H (182-369) K/mm3 MPV 8.3 L (9.4-12.3) fl Neut % (Auto) 82.7 H (34.0-71.1) % Lymph % (Auto) 9.5 L (19.3-51.7) % [place] % (Auto) 7.5 (4.7-12.5) % Eos % (Auto) 0.1 L (0.7-5.8) Baso % (Auto) 0.1 (0.1-1.2) % Neut # (Auto) 12.07 H (1.56-6.13) K/mm3 Lymph # (Auto) 1.39 (1.18-3.74) K/mm3 [place] # (Auto) 1.09 H (0.24-0.36) K/mm3 Eos # (Auto) 0.01 L (0.04-0.36) K/mm3 Baso # (Auto) 0.02 (0.01-0.08) K/mm3 Manual Slide Review Normal smear Sodium 135 L (136-145) mEq/L Potassium 4.1 (3.5-5.1) mEq/L Chloride 99 (98-107) mEq/L Carbon Dioxide 28 (21-32) mEq/L Anion Gap 12.1 (5-15) BUN 13 (7-18) mg/dL Creatinine 1.1 H (0.55-1.02) mg/dL Est Cr Clr Drug Dosing 27.42 mL/min Estimated GFR (MDRD) 47 (>60) mL/min BUN/Creatinine Ratio 11.8 L (14-18) Glucose 175 H (70-99) mg/dL POC Glucose 150 H (70-99) mg/dL Calcium 8.5 (8.5-10.1) mg/dL Magnesium 2.0 (1.8-2.4) mg/dL Total Bilirubin 0.6 (0.2-1.0) mg/dL AST 20 (15-37) U/L ALT 19 (14-59) U/L Alkaline Phosphatase 65 (46-116) U/L Total Protein 6.5 (6.4-8.2) g/dl Albumin 3.1 L (3.4-5.0) g/dl Globulin 3.4 gm/dL Albumin/Globulin Ratio 0.9 L (1-2) Blood Type Gel Antibody Screen Crossmatch 10/05/20 10/05/20 10/05/20 Range/Units 17:11 18:04 18:04 WBC (3.98-10.04) K/mm3 RBC (3.98-5.22) M/mm3 Hgb 8.2 L (11.2-15.7) gm/dl Hct 25.5 L (34.1-44.9) % MCV (79.4-94.8) fl MCH (25.6-32.2) pg MCHC (32.2-35.5) g/dl RDW Std Deviation (36.4-46.3) fL Plt Count (182-369) K/mm3 MPV (9.4-12.3) fl Neut % (Auto) (34.0-71.1) % Lymph % (Auto) (19.3-51.7) % [place] % (Auto) (4.7-12.5) % Eos % (Auto) (0.7-5.8) Baso % (Auto) (0.1-1.2) % Neut # (Auto) (1.56-6.13) K/mm3 Lymph # (Auto) (1.18-3.74) K/mm3 [place] # (Auto) (0.24-0.36) K/mm3 Eos # (Auto) (0.04-0.36) K/mm3 Baso # (Auto) (0.01-0.08) K/mm3 Manual Slide Review Sodium (136-145) mEq/L Potassium (3.5-5.1) mEq/L Chloride (98-107) mEq/L Carbon Dioxide (21-32) mEq/L Anion Gap (5-15) BUN (7-18) mg/dL Creatinine (0.55-1.02) mg/dL Est Cr Clr Drug Dosing mL/min Estimated GFR (MDRD) (>60) mL/min BUN/Creatinine Ratio (14-18) Glucose (70-99) mg/dL POC Glucose 128 H (70-99) mg/dL Calcium (8.5-10.1) mg/dL Magnesium (1.8-2.4) mg/dL Total Bilirubin (0.2-1.0) mg/dL AST (15-37) U/L ALT (14-59) U/L Alkaline Phosphatase (46-116) U/L Total Protein (6.4-8.2) g/dl Albumin (3.4-5.0) g/dl Globulin gm/dL Albumin/Globulin Ratio (1-2) Blood Type Gel Antibody Screen Crossmatch 10/06/20 10/06/20 10/06/20 Range/Units 05:39 05:39 05:39 WBC 6.91 (3.98-10.04) K/mm3 RBC 2.52 L (3.98-5.22) M/mm3 Hgb 7.8 L (11.2-15.7) gm/dl Hct 24.5 L (34.1-44.9) % MCV 97.2 H (79.4-94.8) fl MCH 31.0 (25.6-32.2) pg MCHC 31.8 L (32.2-35.5) g/dl RDW Std Deviation 43.9 (36.4-46.3) fL Plt Count 345 (182-369) K/mm3 MPV 8.5 L (9.4-12.3) fl Neut % (Auto) 65.5 (34.0-71.1) % Lymph % (Auto) 21.4 (19.3-51.7) % [place] % (Auto) 8.4 (4.7-12.5) % Eos % (Auto) 4.2 (0.7-5.8) Baso % (Auto) 0.4 (0.1-1.2) % Neut # (Auto) 4.52 (1.56-6.13) K/mm3 Lymph # (Auto) 1.48 (1.18-3.74) K/mm3 [place] # (Auto) 0.58 H (0.24-0.36) K/mm3 Eos # (Auto) 0.29 (0.04-0.36) K/mm3 Baso # (Auto) 0.03 (0.01-0.08) K/mm3 Manual Slide Review Abnormal smear Sodium 134 L (136-145) mEq/L Potassium 4.2 (3.5-5.1) mEq/L Chloride 99 (98-107) mEq/L Carbon Dioxide 30 (21-32) mEq/L Anion Gap 9.2 (5-15) BUN 19 H (7-18) mg/dL Creatinine 1.1 H (0.55-1.02) mg/dL Est Cr Clr Drug Dosing 27.18 mL/min Estimated GFR (MDRD) 47 (>60) mL/min BUN/Creatinine Ratio 17.3 (14-18) Glucose 155 H (70-99) mg/dL POC Glucose (70-99) mg/dL Calcium 8.1 L (8.5-10.1) mg/dL Magnesium 2.1 (1.8-2.4) mg/dL Total Bilirubin 0.3 (0.2-1.0) mg/dL AST 19 (15-37) U/L ALT 18 (14-59) U/L Alkaline Phosphatase 68 (46-116) U/L Total Protein 5.9 L (6.4-8.2) g/dl Albumin 2.7 L (3.4-5.0) g/dl Globulin 3.2 gm/dL Albumin/Globulin Ratio 0.8 L (1-2) Blood Type O POSITIVE Gel Antibody Screen Negative Crossmatch See Detail 10/06/20 Range/Units 06:20 WBC (3.98-10.04) K/mm3 RBC (3.98-5.22) M/mm3 Hgb (11.2-15.7) gm/dl Hct (34.1-44.9) % MCV (79.4-94.8) fl MCH (25.6-32.2) pg MCHC (32.2-35.5) g/dl RDW Std Deviation (36.4-46.3) fL Plt Count (182-369) K/mm3 MPV (9.4-12.3) fl Neut % (Auto) (34.0-71.1) % Lymph % (Auto) (19.3-51.7) % [place] % (Auto) (4.7-12.5) % Eos % (Auto) (0.7-5.8) Baso % (Auto) (0.1-1.2) % Neut # (Auto) (1.56-6.13) K/mm3 Lymph # (Auto) (1.18-3.74) K/mm3 [place] # (Auto) (0.24-0.36) K/mm3 Eos # (Auto) (0.04-0.36) K/mm3 Baso # (Auto) (0.01-0.08) K/mm3 Manual Slide Review Sodium (136-145) mEq/L Potassium (3.5-5.1) mEq/L Chloride (98-107) mEq/L Carbon Dioxide (21-32) mEq/L Anion Gap (5-15) BUN (7-18) mg/dL Creatinine (0.55-1.02) mg/dL Est Cr Clr Drug Dosing mL/min Estimated GFR (MDRD) (>60) mL/min BUN/Creatinine Ratio (14-18) Glucose (70-99) mg/dL POC Glucose 169 H (70-99) mg/dL Calcium (8.5-10.1) mg/dL Magnesium (1.8-2.4) mg/dL Total Bilirubin (0.2-1.0) mg/dL AST (15-37) U/L ALT (14-59) U/L Alkaline Phosphatase (46-116) U/L Total Protein (6.4-8.2) g/dl Albumin (3.4-5.0) g/dl Globulin gm/dL Albumin/Globulin Ratio (1-2) Blood Type Gel Antibody Screen Crossmatch Result Diagrams: 10/06/20 05:39 10/06/20 05:39 Robin Results Last 24 hrs: Microbiology 10/05/20 13:12 Stool Occult Blood (ROBIN) - Final Stool / Feces Sepsis Event Note - Evaluation Sepsis Screening Result: No Definite Risk - Focused Exam Vital Signs: Vital Signs Temp Pulse Resp BP Pulse Ox 10/06/20 08:52 121/67 10/06/20 07:36 21 06:23 97.9 F 67 14 113/90 92 L - Problem List & Annotations (1) Dysphagia SNOMED Code(s): 43409834, 763281337 Code(s): R13.10 - DYSPHAGIA, UNSPECIFIED Status: Chronic Priority: Medium Current Visit: Yes Qualifiers: Dysphagia type: unspecified Qualified Code(s): R13.10 - Dysphagia, unspecified (2) Upper GI bleed SNOMED Code(s): 65427686 Code(s): K92.2 - GASTROINTESTINAL HEMORRHAGE, UNSPECIFIED Status: Acute Priority: High Current Visit: Yes (3) Hyponatremia SNOMED Code(s): 82879470 Code(s): E87.1 - HYPO-OSMOLALITY AND HYPONATREMIA Status: Acute Current Visit: Yes (4) Cerebrovascular accident SNOMED Code(s): 553613975 Code(s): I63.9 - CEREBRAL INFARCTION, UNSPECIFIED Status: Resolved Priority: Low Current Visit: No Qualifiers: CVA mechanism: unspecified Qualified Code(s): I63.9 - Cerebral infarction, unspecified (5) TIA (transient ischemic attack) SNOMED Code(s): 245822909, 356780907 Code(s): G45.9 - TRANSIENT CEREBRAL ISCHEMIC ATTACK, UNSPECIFIED Status: Resolved Priority: Low Current Visit: No Qualifiers: Transient cerebral ischemia type: unspecified Qualified Code(s): G45.9 - Transient cerebral ischemic attack, unspecified - Problem List Review Problem List Initiated/Reviewed/Updated: Yes - My Orders Last 24 Hours: My Active Orders 10/05/20 11:09 OT Evaluation and Treatment [CONS] Routine PT Evaluation and Treatment [CONS] Routine 10/05/20 13:51 Accu Check [Blood Glucose Check, Bedside] [RC] BIDAC 10/05/20 16:00 lisinopriL [Prinivil] 10 mg GTUBE DAILY 10/05/20 21:00 Acetaminophen [TylenoL] 650 mg GTUBE BEDTIME Pantoprazole [ProTONIX IV] 40 mg IVPUSH Q12H 10/06/20 05:39 RED BLOOD CELLS LP [BBK] Routine TYPE AND SCREEN [BBK] Routine 10/06/20 08:00 Dextrose 5%-0.9% NaCl [Dextrose 5%-Normal Saline] 1,000 ml IV ASDIRECTED 10/06/20 08:11 Transfuse PRBC [Transfuse Red Blood Cells] [COMM] Routine 10/06/20 08:13 Verify Patient Consent Obtain [RC] ASDIRECTED 10/06/20 08:52 Admission Status [Patient Status] [ADT] Routine 10/06/20 09:00 FLUoxetine [PROzac] 20 mg GTUBE DAILY 10/06/20 10:37 PATIENT RETYPE [BBK] Routine 10/06/20 Lunch NPO Now [Nothing per Oral Now Diet] [DIET] 10/06/20 16:00 HEMOGLOBIN/HEMATOCRIT,HH [HEME] Timed - Assessment Assessment:: 10/06/20 * Reports feeling much better today * Tolerating tube feedings as well as. Diet with nectar thickened liquid however does have a significant amount of coughing noted with meals. Per the dietitian's communication with the group home, the patient has been cued to forcefully cough with each bite to prevent any aspiration. * Has not had a bowel movement since being in the hospital * Has not had any nausea or emesis since being in the hospital * States her abdominal pain has resolved however she does note that with palpation to the middle of her abdomen she still has slight discomfort. * Radiologist impression portable view of the chest: 1. Questionable mid focal bronchitis within the inferior left perihilar region. Please correlate if this matches clinically. 2. Nothing acute is otherwise seen. Labs: WBC 8.06->14.60->6.91 Hgb 8.7->8.8->8.2->7.8 Hct 26.5->27.3->25.5->24.5 PLT 450->389->345 Na 133->135->134 K 3.7->4.1->4.2 Chl 97->99->99 Anion Gap 13.7->12.1->9.2 BUN 15->13->19 Cre 1.1->1.1->1.1 Glu 135->175->155 Ca 9.2->8.5->8.1 Total bili 0.4->0.6->0.3 AST 23->20->19 ALT 18->19->18 Alk Phos 75->65->68 Lipase 140 Albumin 3.1->2.7 Total protein 6.5->5.9 * Elevated WBC has returned to normal from yesterday; this was likely a stress response. * Hemoglobin has decreased to 7.8. - Plan Plan:: 10/05/20 * 89-year-old female presents the emergency department from [facility] with abdominal pain and coffee-ground emesis x1 * States that she developed the abdominal pain about 2 days ago. Pain is located in the suprapubic and mid abdomen region. * ED physician did try to obtain fecal occult stool however there was no stool in the rectal vault; the sample that was obtained was negative * Patient is currently only taking 1 baby aspirin daily; she does have a history of intermittent atrial fibrillation, TIA, and CVA * Currently receiving tube feedings via PEG tube due to dysphagia and recurrent aspiration pneumonia * Currently on pured diet with nectar thickened liquids she does need to be observed during all meals; * Labs in ED: WBC 8.06 Hgb 8.7 Hct 26.5 PLT 450 Na 133 K 3.7 Chl 97 Anion Gap 13.7 BUN 15 Cre 1.1 Glu 135 Ca 9.2 Total bili 0.4 AST 23 ALT 18 Alk Phos 75 Lipase 140 UA was unremarkable Hemoccult was negative however there was not stool in the rectal vault Plan: Dysphagia -Patient does have a history of CVA in the past and has been receiving tube feedings per PEG tube as a result -Per the group home records, the patient does receive pured diet with nectar thickened liquidsshe is observed with feeding during all meals -patient was initially NPO, however we will resume tube feedings -consult vp ad products and planning Upper GI bleed -Patient did have 1 coffee-ground emesis, however she has had no further bouts of emesis -Hemoglobin in the emergency department was 8.7 -Patient was started on Carafate 4 times daily -Patient was given a dose of Protonix 40 mg IV in the emergency department; start Protonix 40mg IV BID -repeat labs today and in the am; trend H&H -repeat H&H at 1800 Hyponatremia -D5 1/2 NS infusing; will continue this until the patient is started on her tube feedings Cerebrovascular accident; TIA (transient ischemic attack) -not currently on anticoagulants; takes a 81mg baby ASA daily-this will be held for now Code Status: DNR PCP: Dr. Christiansen DVT Prophylaxis: SCD's Disposition: Admitted to [facility] observation status; will likely discharge back to [facility] in the next day or two; PT/OT to eval and treat; financial services representative for discharge planning Repeat assessment: -pt denies any abdominal pain -hemoglobin 8.8 late this morning -will begin tube feedings this evening as per the group home Labs: WBC 8.06->14.60 Hgb 8.7->8.8 Hct 26.5->27.3 PLT 450->389 Na 133->135 K 3.7->4.1 Chl 97->99 Anion Gap 13.7->12.1 BUN 15->13 Cre 1.1->1.1 Glu 135->175 Ca 9.2->8.5 Total bili 0.4->0.6 AST 23->20 ALT 18->19 Alk Phos 75->65 Lipase 140 Hemoccult was negative -WBC is elevated. Question if this is due to a stress response as UA was ne gative and abdominal pain has resolved. Will order a CXR per Dr. Jurado's recommendations. 10/06/20 Dysphagia -Patient does have a history of CVA in the past and has been receiving tube feedings per PEG tube as a result -Per the group home records, the patient does receive pured diet with nectar thickened liquidsshe is observed with feeding during all meals -change to NPO status and tube feedings are on hold due to decreased HGB levels; will give the patient 24 hours of bowel rest -Manufacturing Planner reports that the patient has only recently started oral feeding at the group home. She is instructed to cough forcefully after every bite of food to prevent any aspiration. Upper GI bleed -No emesis in the past 24 hours -Hemoglobin in the emergency department was 8.7; 7.8 today -Patient was started on Carafate 4 times daily -Protonix 40mg IV BID -Will receive 1 unit of PRBCs today and repeat H&H 4 hours after blood transfusi on is completed;trend H&H -repeat CBC in the a.m. Hyponatremia -D5 NS @ 100ml/hr as pt is npo and sodium is 134 Cerebrovascular accident; TIA (transient ischemic attack) -not currently on anticoagulants; takes a 81mg baby ASA daily-this will be held for now -PT/OT for ambulation and strengthening and ADLs Code Status: DNR PCP: Dr. 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 <Abelino Jurado - Last Filed: 10/06/20 14:30> - General Info Date of Service: 10/06/20 - Patient Data Vitals - Most Recent: Last Vital Signs Temp 98.8 F 10/06/20 12:27 Pulse 68 10/06/20 12:27 Resp 18 10/06/20 12:27 BP 108/78 10/06/20 12:27 Pulse Ox 99 10/06/20 12:03 I&O - Last 24 Hours: Intake & Output 10/05/20 10/06/20 10/06/20 22:59 06:59 14:59 Intake Total 1152 1080 225 Output Total 400 400 Balance 752 680 225 Lab Results Last 24 Hours: Laboratory Results - last 24 hr 10/05/20 10/05/20 10/05/20 Range/Units 17:11 18:04 18:04 WBC (3.98-10.04) K/mm3 RBC (3.98-5.22) M/mm3 Hgb 8.2 L (11.2-15.7) gm/dl Hct 25.5 L (34.1-44.9) % MCV (79.4-94.8) fl MCH (25.6-32.2) pg MCHC (32.2-35.5) g/dl RDW Std Deviation (36.4-46.3) fL Plt Count (182-369) K/mm3 MPV (9.4-12.3) fl Neut % (Auto) (34.0-71.1) % Lymph % (Auto) (19.3-51.7) % [place] % (Auto) (4.7-12.5) % Eos % (Auto) (0.7-5.8) Baso % (Auto) (0.1-1.2) % Neut # (Auto) (1.56-6.13) K/mm3 Lymph # (Auto) (1.18-3.74) K/mm3 [place] # (Auto) (0.24-0.36) K/mm3 Eos # (Auto) (0.04-0.36) K/mm3 Baso # (Auto) (0.01-0.08) K/mm3 Manual Slide Review Sodium (136-145) mEq/L Potassium (3.5-5.1) mEq/L Chloride (98-107) mEq/L Carbon Dioxide (21-32) mEq/L Anion Gap (5-15) BUN (7-18) mg/dL Creatinine (0.55-1.02) mg/dL Est Cr Clr Drug Dosing mL/min Estimated GFR (MDRD) (>60) mL/min BUN/Creatinine Ratio (14-18) Glucose (70-99) mg/dL POC Glucose 128 H (70-99) mg/dL Calcium (8.5-10.1) mg/dL Magnesium (1.8-2.4) mg/dL Total Bilirubin (0.2-1.0) mg/dL AST (15-37) U/L ALT (14-59) U/L Alkaline Phosphatase (46-116) U/L Total Protein (6.4-8.2) g/dl Albumin (3.4-5.0) g/dl Globulin gm/dL Albumin/Globulin Ratio (1-2) Blood Type Gel Antibody Screen Crossmatch 10/06/20 10/06/20 10/06/20 Range/Units 05:39 05:39 05:39 WBC 6.91 (3.98-10.04) K/mm3 RBC 2.52 L (3.98-5.22) M/mm3 Hgb 7.8 L (11.2-15.7) gm/dl Hct 24.5 L (34.1-44.9) % MCV 97.2 H (79.4-94.8) fl MCH 31.0 (25.6-32.2) pg MCHC 31.8 L (32.2-35.5) g/dl RDW Std Deviation 43.9 (36.4-46.3) fL Plt Count 345 (182-369) K/mm3 MPV 8.5 L (9.4-12.3) fl Neut % (Auto) 65.5 (34.0-71.1) % Lymph % (Auto) 21.4 (19.3-51.7) % [place] % (Auto) 8.4 (4.7-12.5) % Eos % (Auto) 4.2 (0.7-5.8) Baso % (Auto) 0.4 (0.1-1.2) % Neut # (Auto) 4.52 (1.56-6.13) K/mm3 Lymph # (Auto) 1.48 (1.18-3.74) K/mm3 [place] # (Auto) 0.58 H (0.24-0.36) K/mm3 Eos # (Auto) 0.29 (0.04-0.36) K/mm3 Baso # (Auto) 0.03 (0.01-0.08) K/mm3 Manual Slide Review Abnormal smear Sodium 134 L (136-145) mEq/L Potassium 4.2 (3.5-5.1) mEq/L Chloride 99 (98-107) mEq/L Carbon Dioxide 30 (21-32) mEq/L Anion Gap 9.2 (5-15) BUN 19 H (7-18) mg/dL Creatinine 1.1 H (0.55-1.02) mg/dL Est Cr Clr Drug Dosing 27.18 mL/min Estimated GFR (MDRD) 47 (>60) mL/min BUN/Creatinine Ratio 17.3 (14-18) Glucose 155 H (70-99) mg/dL POC Glucose (70-99) mg/dL Calcium 8.1 L (8.5-10.1) mg/dL Magnesium 2.1 (1.8-2.4) mg/dL Total Bilirubin 0.3 (0.2-1.0) mg/dL AST 19 (15-37) U/L ALT 18 (14-59) U/L Alkaline Phosphatase 68 (46-116) U/L Total Protein 5.9 L (6.4-8.2) g/dl Albumin 2.7 L (3.4-5.0) g/dl Globulin 3.2 gm/dL Albumin/Globulin Ratio 0.8 L (1-2) Blood Type O POSITIVE Gel Antibody Screen Negative Crossmatch See Detail 10/06/20 Range/Units 06:20 WBC (3.98-10.04) K/mm3 RBC (3.98-5.22) M/mm3 Hgb (11.2-15.7) gm/dl Hct (34.1-44.9) % MCV (79.4-94.8) fl MCH (25.6-32.2) pg MCHC (32.2-35.5) g/dl RDW Std Deviation (36.4-46.3) fL Plt Count (182-369) K/mm3 MPV (9.4-12.3) fl Neut % (Auto) (34.0-71.1) % Lymph % (Auto) (19.3-51.7) % [place] % (Auto) (4.7-12.5) % Eos % (Auto) (0.7-5.8) Baso % (Auto) (0.1-1.2) % Neut # (Auto) (1.56-6.13) K/mm3 Lymph # (Auto) (1.18-3.74) K/mm3 [place] # (Auto) (0.24-0.36) K/mm3 Eos # (Auto) (0.04-0.36) K/mm3 Baso # (Auto) (0.01-0.08) K/mm3 Manual Slide Review Sodium (136-145) mEq/L Potassium (3.5-5.1) mEq/L Chloride (98-107) mEq/L Carbon Dioxide (21-32) mEq/L Anion Gap (5-15) BUN (7-18) mg/dL Creatinine (0.55-1.02) mg/dL Est Cr Clr Drug Dosing mL/min Estimated GFR (MDRD) (>60) mL/min BUN/Creatinine Ratio (14-18) Glucose (70-99) mg/dL POC Glucose 169 H (70-99) mg/dL Calcium (8.5-10.1) mg/dL Magnesium (1.8-2.4) mg/dL Total Bilirubin (0.2-1.0) mg/dL AST (15-37) U/L ALT (14-59) U/L Alkaline Phosphatase (46-116) U/L Total Protein (6.4-8.2) g/dl Albumin (3.4-5.0) g/dl Globulin gm/dL Albumin/Globulin Ratio (1-2) Blood Type Gel Antibody Screen Crossmatch Robin Results Last 24 Hours: Microbiology 10/05/20 13:12 Stool Occult Blood (ROBIN) - Final Stool / Feces Med Orders - Current: Current Medications Acetaminophen (Acetaminophen 325 Mg/10.15 Ml Ml) 650 mg PEGTUBE Q4H PRN PRN Reason: Pain/Fever Acetaminophen (Acetaminophen 325 Mg Tab) 650 mg GTUBE BEDTIME [facility] Last Admin: 10/05/20 21:16 Dose: 650 mg Documented by: Al Hydroxide/Mg Hydroxide (Aluminum Hydroxide/Magnesium Hydroxide/Simethicone Susp 30 Ml Cup) 30 ml GTUBE Q4H PRN PRN Reason: Heartburn Artificial Tears (Carboxymethylcellulose Sodium 1% Ophth Gel 15 Ml Bottle) 1 ml EYEBOTH Q6H PRN PRN Reason: Dry Eyes Bisacodyl (Bisacodyl 10 Mg Supp) 10 mg RECTAL ASDIRECTED PRN PRN Reason: Constipation Calcium Carbonate (Calcium Carbonate/Vitamin D3 600 Mg-200 Units Tab) 1 tab GTUBE BID [facility] Last Admin: 10/06/20 08:50 Dose: 1 tab Documented by: Fluoxetine HCl (Fluoxetine 20 Mg Cap) 20 mg GTUBE DAILY [facility] Dextrose/Sodium Chloride (Dextrose 5%-Normal Saline) 1,000 mls @ 100 mls/hr IV ASDIRECTED [facility] Last Admin: 10/06/20 08:50 Dose: 100 mls/hr Documented by: Sodium Chloride (Normal Saline) 250 mls @ 50 mls/hr IV ASDIRECTED [facility] Lisinopril (Lisinopril 10 Mg Tab) 10 mg GTUBE DAILY [facility] Ondansetron HCl (Ondansetron 4 Mg/2 Ml Sdv) 4 mg IVPUSH Q6H PRN PRN Reason: Nausea Last Admin: 10/05/20 02:17 Dose: 4 mg Documented by: Pantoprazole Sodium (Pantoprazole 40 Mg Vial) 40 mg IVPUSH Q12H [facility] Last Admin: 10/06/20 08:51 Dose: 40 mg Documented by: Senna (Sennosides 8.6 Mg Tab) 8.6 mg GTUBE BID [facility] Last Admin: 10/06/20 08:51 Dose: 8.6 mg Documented by: Sucralfate (Sucralfate Suspension 1 Gm/10 Ml Cup) 1 gm PEGTUBE QIDACANDBED [facility] Last Admin: 10/06/20 10:44 Dose: 1 gm Documented by: Discontinued Medications Al Hydroxide/Mg Hydroxide 30 (ml/ Lidocaine HCl 15 ml) 0 ml GTUBE ONETIME ONE Stop: 10/04/20 21:16 Last Admin: 10/04/20 21:37 Dose: 30 ml Documented by: Fluoxetine HCl (Fluoxetine 20 Mg Cap) 20 mg GTUBE DAILY [facility] Last Admin: 10/05/20 10:32 Dose: 20 mg Documented by: Fluoxetine HCl (Fluoxetine 20 Mg Cap Ptom) 20 mg GTUBE DAILY [facility] Last Admin: 10/06/20 08:52 Dose: 20 mg Documented by: Dextrose/Sodium Chloride (Dextrose 5%-1/2 Ns) 1,000 mls @ 75 mls/hr IV ASDIRECTED [facility] Dextrose/Sodium Chloride (Dextrose 5%-1/2 Ns) 1,000 mls @ 75 mls/hr IV A SDIRECTED [facility] Last Admin: 10/05/20 02:14 Dose: 75 mls/hr Documented by: Sodium Chloride (Sodium Chloride 0.45%) 1,000 mls @ 100 mls/hr IV ASDIRECTED [facility] Lisinopril (Lisinopril 10 Mg Tab Ptom) 10 mg GTUBE DAILY [facility] Last Admin: 10/05/20 15:45 Dose: Not Given Documented by: Lisinopril (Lisinopril 10 Mg Tab Ptom) 10 mg GTUBE DAILY [facility] Last Admin: 10/06/20 08:52 Dose: 10 mg Documented by: Pantoprazole Sodium (Pantoprazole 40 Mg Vial) 40 mg IVPUSH ONETIME ONE Stop: 10/05/20 03:16 Last Admin: 10/05/20 05:08 Dose: 40 mg Documented by: Pantoprazole Sodium (Pantoprazole 40 Mg Vial) 40 mg IVPUSH DAILY [facility] Last Admin: 10/05/20 10:22 Dose: 40 mg Documented by: Sucralfate (Sucralfate Suspension 1 Gm/10 Ml Cup) 1 gm PO ONETIME ONE Stop: 10/05/20 03:16 Last Admin: 10/05/20 05:11 Dose: Not Given Documented by: - Patient Data Lab Results Last 24 hrs: Laboratory Results - last 24 hr 10/05/20 10/05/20 10/05/20 Range/Units 17:11 18:04 18:04 WBC (3.98-10.04) K/mm3 RBC (3.98-5.22) M/mm3 Hgb 8.2 L (11.2-15.7) gm/dl Hct 25.5 L (34.1-44.9) % MCV (79.4-94.8) fl MCH (25.6-32.2) pg MCHC (32.2-35.5) g/dl RDW Std Deviation (36.4-46.3) fL Plt Count (182-369) K/mm3 MPV (9.4-12.3) fl Neut % (Auto) (34.0-71.1) % Lymph % (Auto) (19.3-51.7) % [place] % (Auto) (4.7-12.5) % Eos % (Auto) (0.7-5.8) Baso % (Auto) (0.1-1.2) % Neut # (Auto) (1.56-6.13) K/mm3 Lymph # (Auto) (1.18-3.74) K/mm3 [place] # (Auto) (0.24-0.36) K/mm3 Eos # (Auto) (0.04-0.36) K/mm3 Baso # (Auto) (0.01-0.08) K/mm3 Manual Slide Review Sodium (136-145) mEq/L Potassium (3.5-5.1) mEq/L Chloride (98-107) mEq/L Carbon Dioxide (21-32) mEq/L Anion Gap (5-15) BUN (7-18) mg/dL Creatinine (0.55-1.02) mg/dL Est Cr Clr Drug Dosing mL/min Estimated GFR (MDRD) (>60) mL/min BUN/Creatinine Ratio (14-18) Glucose (70-99) mg/dL POC Glucose 128 H (70-99) mg/dL Calcium (8.5-10.1) mg/dL Magnesium (1.8-2.4) mg/dL Total Bilirubin (0.2-1.0) mg/dL AST (15-37) U/L ALT (14-59) U/L Alkaline Phosphatase (46-116) U/L Total Protein (6.4-8.2) g/dl Albumin (3.4-5.0) g/dl Globulin gm/dL Albumin/Globulin Ratio (1-2) Blood Type Gel Antibody Screen Crossmatch 10/06/20 10/06/20 10/06/20 Range/Units 05:39 05:39 05:39 WBC 6.91 (3.98-10.04) K/mm3 RBC 2.52 L (3.98-5.22) M/mm3 Hgb 7.8 L (11.2-15.7) gm/dl Hct 24.5 L (34.1-44.9) % MCV 97.2 H (79.4-94.8) fl MCH 31.0 (25.6-32.2) pg MCHC 31.8 L (32.2-35.5) g/dl RDW Std Deviation 43.9 (36.4-46.3) fL Plt Count 345 (182-369) K/mm3 MPV 8.5 L (9.4-12.3) fl Neut % (Auto) 65.5 (34.0-71.1) % Lymph % (Auto) 21.4 (19.3-51.7) % [place] % (Auto) 8.4 (4.7-12.5) % Eos % (Auto) 4.2 (0.7-5.8) Baso % (Auto) 0.4 (0.1-1.2) % Neut # (Auto) 4.52 (1.56-6.13) K/mm3 Lymph # (Auto) 1.48 (1.18-3.74) K/mm3 [place] # (Auto) 0.58 H (0.24-0.36) K/mm3 Eos # (Auto) 0.29 (0.04-0.36) K/mm3 Baso # (Auto) 0.03 (0.01-0.08) K/mm3 Manual Slide Review Abnormal smear Sodium 134 L (136-145) mEq/L Potassium 4.2 (3.5-5.1) mEq/L Chloride 99 (98-107) mEq/L Carbon Dioxide 30 (21-32) mEq/L Anion Gap 9.2 (5-15) BUN 19 H (7-18) mg/dL Creatinine 1.1 H (0.55-1.02) mg/dL Est Cr Clr Drug Dosing 27.18 mL/min Estimated GFR (MDRD) 47 (>60) mL/min BUN/Creatinine Ratio 17.3 (14-18) Glucose 155 H (70-99) mg/dL POC Glucose (70-99) mg/dL Calcium 8.1 L (8.5-10.1) mg/dL Magnesium 2.1 (1.8-2.4) mg/dL Total Bilirubin 0.3 (0.2-1.0) mg/dL AST 19 (15-37) U/L ALT 18 (14-59) U/L Alkaline Phosphatase 68 (46-116) U/L Total Protein 5.9 L (6.4-8.2) g/dl Albumin 2.7 L (3.4-5.0) g/dl Globulin 3.2 gm/dL Albumin/Globulin Ratio 0.8 L (1-2) Blood Type O POSITIVE Gel Antibody Screen Negative Crossmatch See Detail 10/06/20 Range/Units 06:20 WBC (3.98-10.04) K/mm3 RBC (3.98-5.22) M/mm3 Hgb (11.2-15.7) gm/dl Hct (34.1-44.9) % MCV (79.4-94.8) fl MCH (25.6-32.2) pg MCHC (32.2-35.5) g/dl RDW Std Deviation (36.4-46.3) fL Plt Count (182-369) K/mm3 MPV (9.4-12.3) fl Neut % (Auto) (34.0-71.1) % Lymph % (Auto) (19.3-51.7) % [place] % (Auto) (4.7-12.5) % Eos % (Auto) (0.7-5.8) Baso % (Auto) (0.1-1.2) % Neut # (Auto) (1.56-6.13) K/mm3 Lymph # (Auto) (1.18-3.74) K/mm3 [place] # (Auto) (0.24-0.36) K/mm3 Eos # (Auto) (0.04-0.36) K/mm3 Baso # (Auto) (0.01-0.08) K/mm3 Manual Slide Review Sodium (136-145) mEq/L Potassium (3.5-5.1) mEq/L Chloride (98-107) mEq/L Carbon Dioxide (21-32) mEq/L Anion Gap (5-15) BUN (7-18) mg/dL Creatinine (0.55-1.02) mg/dL Est Cr Clr Drug Dosing mL/min Estimated GFR (MDRD) (>60) mL/min BUN/Creatinine Ratio (14-18) Glucose (70-99) mg/dL POC Glucose 169 H (70-99) mg/dL Calcium (8.5-10.1) mg/dL Magnesium (1.8-2.4) mg/dL Total Bilirubin (0.2-1.0) mg/dL AST (15-37) U/L ALT (14-59) U/L Alkaline Phosphatase (46-116) U/L Total Protein (6.4-8.2) g/dl Albumin (3.4-5.0) g/dl Globulin gm/dL Albumin/Globulin Ratio (1-2) Blood Type Gel Antibody Screen Crossmatch Result Diagrams: 10/06/20 05:39 10/06/20 05:39 Robin Results Last 24 hrs: Microbiology 10/05/20 13:12 Stool Occult Blood (ROBIN) - Final Stool / Feces Sepsis Event Note - Focused Exam Vital Signs: Vital Signs Temp Pulse Pulse Resp BP BP Pulse Ox 10/06/20 12:27 98.8 F 68 18 108/78 10/06/20 12:03 98.2 F 73 22 H 125/91 H 99 10/06/20 08:52 121/67 10/06/20 07:36 121/67 10/06/20 06:23 97.9 F 67 14 113/90 92 L - My Orders Last 24 Hours: My Active Orders 10/06/20 08:45 Sodium Chloride 0.9% [Normal Saline] 250 ml IV ASDIRECTED - Plan Plan:: S: Seen and evaluated I agree with the above assessment and plan. O: Awake and alert. In no distress VS: stable CVS: S1S2 appreciated. RRR lungs: clear bilaterally pa: soft, nontender. bowel sounds present. PEG tube present ext: no clubbing, cyanosis or edema neuro: moves all extremities. Ambulates with a walker. Assessment Acute blood loss anemia likely from a GI source. Dysphagia Plan: Will hold tube feeds for now .Give 1 unit of PRBC's Continue with PPI BID repeat CBC
[2020-10-06] MEDS ORDERED: Scopolamine 1.5 MG Transdermal Patch TOP ONE (17:27)
[2020-10-06] MEDS: Acetaminophen 325 MG Tab GTUBE SCH (21:21)
[2020-10-07] MEDS: Sucralfate Suspension 1 GM/10 ML Cup PEGTUBE SCH ×2 (06:48→10:11)
--- NOTE | 2020-10-07 08:05 | PCM.PN ---
- General Info Date of Service: 10/07/20 Admission Dx/Problem (Free Text): Admission Diagnosis/Problem Admission Diagnosis/Problem Anemia - Patient Data Vitals - Most Recent: Last Vital Signs Temp 97.2 F 10/07/20 07:41 Pulse 66 10/07/20 07:41 Resp 20 10/07/20 07:41 BP 140/40 L 10/07/20 07:41 Pulse Ox 97 10/07/20 07:41 Weight - Most Recent: 122 lb 8 oz I&O - Last 24 Hours: Intake & Output 10/06/20 10/07/20 10/07/20 22:59 06:59 14:59 Intake Total 992 975 Balance 992 975 Lab Results Last 24 Hours: Laboratory Results - last 24 hr 10/06/20 10/06/20 10/06/20 Range/Units 05:39 16:47 19:06 Hgb 9.5 L D (11.2-15.7) gm/dl Hct 29.2 L (34.1-44.9) % POC Glucose 126 H (70-99) mg/dL Blood Type O POSITIVE Gel Antibody Screen Negative Crossmatch See Detail 10/07/20 Range/Units 06:25 Hgb (11.2-15.7) gm/dl Hct (34.1-44.9) % POC Glucose 139 H (70-99) mg/dL Blood Type Gel Antibody Screen Crossmatch Med Orders - Current: Current Medications Acetaminophen (Acetaminophen 325 Mg/10.15 Ml Ml) 650 mg PEGTUBE Q4H PRN PRN Reason: Pain/Fever Last Admin: 10/06/20 15:10 Dose: 650 mg Documented by: Acetaminophen (Acetaminophen 325 Mg Tab) 650 mg GTUBE BEDTIME JULIANA Last Admin: 10/06/20 21:21 Dose: 650 mg Documented by: Al Hydroxide/Mg Hydroxide (Aluminum Hydroxide/Magnesium Hydroxide/Simethicone Susp 30 Ml Cup) 30 ml GTUBE Q4H PRN PRN Reason: Heartburn Artificial Tears (Carboxymethylcellulose Sodium 1% Ophth Gel 15 Ml Bottle) 1 ml EYEBOTH Q6H PRN PRN Reason: Dry Eyes Bisacodyl (Bisacodyl 10 Mg Supp) 10 mg RECTAL ASDIRECTED PRN PRN Reason: Constipation Calcium Carbonate (Calcium Carbonate/Vitamin D3 600 Mg-200 Units Tab) 1 tab GTUBE BID JULIANA Last Admin: 10/06/20 21:20 Dose: 1 tab Documented by: Fluoxetine HCl (Fluoxetine 20 Mg Cap) 20 mg GTUBE DAILY [facility] Dextrose/Sodium Chloride (Dextrose 5%-Normal Saline) 1,000 mls @ 100 mls/hr IV ASDIRECTED [facility] Last Admin: 10/06/20 21:22 Dose: 100 mls/hr Documented by: Lisinopril (Lisinopril 10 Mg Tab) 10 mg GTUBE DAILY [facility] Miscellaneous Information (Remove Scopolamine Patch) 1 ea TRDERM ONETIME ONE Stop: 10/09/20 17:31 Ondansetron HCl (Ondansetron 4 Mg/2 Ml Sdv) 4 mg IVPUSH Q6H PRN PRN Reason: Nausea Last Admin: 10/05/20 02:17 Dose: 4 mg Documented by: Pantoprazole Sodium (Pantoprazole 40 Mg Vial) 40 mg IVPUSH Q12H [facility] Last Admin: 10/06/20 21:20 Dose: 40 mg Documented by: Senna (Sennosides 8.6 Mg Tab) 8.6 mg GTUBE BID [facility] Last Admin: 10/06/20 20:18 Dose: Not Given Documented by: Sucralfate (Sucralfate Suspension 1 Gm/10 Ml Cup) 1 gm PEGTUBE QIDACANDBED [facility] Last Admin: 10/07/20 06:48 Dose: 1 gm Documented by: Discontinued Medications Al Hydroxide/Mg Hydroxide 30 (ml/ Lidocaine HCl 15 ml) 0 ml GTUBE ONETIME ONE Stop: 10/04/20 21:16 Last Admin: 10/04/20 21:37 Dose: 30 ml Documented by: Fluoxetine HCl (Fluoxetine 20 Mg Cap) 20 mg GTUBE DAILY [facility] Last Admin: 10/05/20 10:32 Dose: 20 mg Documented by: Fluoxetine HCl (Fluoxetine 20 Mg Cap Ptom) 20 mg GTUBE DAILY [facility] Last Admin: 10/06/20 08:52 Dose: 20 mg Documented by: Dextrose/Sodium Chloride (Dextrose 5%-1/2 Ns) 1,000 mls @ 75 mls/hr IV ASDIRECTED JULIANA Dextrose/Sodium Chloride (Dextrose 5%-1/2 Ns) 1,000 mls @ 75 mls/hr IV ASD IRECTED [facility] Last Admin: 10/05/20 02:14 Dose: 75 mls/hr Documented by: Sodium Chloride (Sodium Chloride 0.45%) 1,000 mls @ 100 mls/hr IV ASDIRECTED [facility] Sodium Chloride (Normal Saline) 250 mls @ 50 mls/hr IV ASDIRECTED [facility] Lisinopril (Lisinopril 10 Mg Tab Ptom) 10 mg GTUBE DAILY [facility] Last Admin: 10/05/20 15:45 Dose: Not Given Documented by: Lisinopril (Lisinopril 10 Mg Tab Ptom) 10 mg GTUBE DAILY [facility] Last Admin: 10/06/20 08:52 Dose: 10 mg Documented by: Pantoprazole Sodium (Pantoprazole 40 Mg Vial) 40 mg IVPUSH ONETIME ONE Stop: 10/05/20 03:16 Last Admin: 10/05/20 05:08 Dose: 40 mg Documented by: Pantoprazole Sodium (Pantoprazole 40 Mg Vial) 40 mg IVPUSH DAILY [facility] Last Admin: 10/05/20 10:22 Dose: 40 mg Documented by: Scopolamine (Scopolamine 1.5 Mg Transdermal Patch) 1.5 mg TOP ONETIME ONE Stop: 10/06/20 17:28 Last Admin: 10/06/20 17:58 Dose: 1.5 mg Documented by: Sucralfate (Sucralfate Suspension 1 Gm/10 Ml Cup) 1 gm PO ONETIME ONE Stop: 10/05/20 03:16 Last Admin: 10/05/20 05:11 Dose: Not Given Documented by: - Patient Data Lab Results Last 24 hrs: Laboratory Results - last 24 hr 10/06/20 10/06/20 10/06/20 Range/Units 05:39 16:47 19:06 Hgb 9.5 L D (11.2-15.7) gm/dl Hct 29.2 L (34.1-44.9) % POC Glucose 126 H (70-99) mg/dL Blood Type O POSITIVE Gel Antibody Screen Negative Crossmatch See Detail 10/07/20 Range/Units 06:25 Hgb (11.2-15.7) gm/dl Hct (34.1-44.9) % POC Glucose 139 H (70-99) mg/dL Blood Type Gel Antibody Screen Crossmatch Result Diagrams: 10/06/20 19:06 10/06/20 05:39 Sepsis Event Note - Evaluation Sepsis Screening Result: No Definite Risk - Focused Exam Vital Signs: Vital Signs Temp Pulse Resp BP Pulse Ox 10/07/20 07:41 97.2 F 66 20 140/40 L 97 10/07/20 03:34 64 18 142/98 H 95 10/06/20 21:18 97.9 F 58 L 18 139/41 L 96 - Problem List & Annotations (1) History of TIA (transient ischemic attack) SNOMED Code(s): 155094229 Code(s): Z86.73 - PRSNL HX OF TIA (TIA), AND CEREB INFRC W/O RESID DEFICITS Status: Chronic Priority: Low Current Visit: No (2) History of CVA (cerebrovascular accident) SNOMED Code(s): 065850027 Code(s): Z86.73 - PRSNL HX OF TIA (TIA), AND CEREB INFRC W/O RESID DEFICITS Status: Chronic Priority: Low Current Visit: No (3) Hyponatremia SNOMED Code(s): 25735230 Code(s): E87.1 - HYPO-OSMOLALITY AND HYPONATREMIA Status: Acute Priority: Medium Current Visit: Yes (4) Upper GI bleed SNOMED Code(s): 26862418 Code(s): K92.2 - GASTROINTESTINAL HEMORRHAGE, UNSPECIFIED Status: Acute Priority: High Current Visit: Yes (5) Dysphagia SNOMED Code(s): 34519584, 367042668 Code(s): R13.10 - DYSPHAGIA, UNSPECIFIED Status: Chronic Priority: Medium Current Visit: Yes Qualifiers: Dysphagia type: unspecified Qualified Code(s): R13.10 - Dysphagia, unspecified (6) S/P percutaneous endoscopic gastrostomy (PEG) tube placement SNOMED Code(s): 330541058 Code(s): Z93.1 - GASTROSTOMY STATUS Status: Chronic Priority: Low Current Visit: No (7) A-fib SNOMED Code(s): 31998584 Code(s): I48.91 - UNSPECIFIED ATRIAL FIBRILLATION Status: Chronic Priority: Low Current Visit: No Qualifiers: Atrial fibrillation type: unspecified Qualified Code(s): I48.91 - Unspecified atrial fibrillation (8) History of angina pectoris SNOMED Code(s): 991371646 Code(s): Z86.79 - PERSONAL HISTORY OF OTHER DISEASES OF THE CIRCULATORY SYSTEM Status: Chronic Priority: Low Current Visit: No (9) CAD (coronary artery disease) SNOMED Code(s): 70857549 Code(s): I25.10 - ATHSCL HEART DISEASE OF [place] CORONARY ARTERY W/O ANG PCTRS Status: Chronic Priority: Low Current Visit: No Qualifiers: Coronary Disease-Associated Artery/Lesion type: unspecified vessel or lesion type [place] vs. transplanted heart: [place] heart Associated angina: unspecified whether angina present Qualified Code(s): I25.10 - Atherosclerotic heart disease of [place] coronary artery without angina pectoris (10) HLD (hyperlipidemia) SNOMED Code(s): 31715498 Code(s): E78.5 - HYPERLIPIDEMIA, UNSPECIFIED Status: Chronic Priority: L ow Current Visit: No Qualifiers: Hyperlipidemia type: unspecified Qualified Code(s): E78.5 - Hyperlipidemia, unspecified (11) HTN (hypertension) SNOMED Code(s): 17959116 Code(s): I10 - ESSENTIAL (PRIMARY) HYPERTENSION Status: Chronic Priority: Low Current Visit: No Qualifiers: Hypertension type: unspecified Qualified Code(s): I10 - Essential (primary) hypertension (12) Recurrent aspiration pneumonia SNOMED Code(s): 906626541 Code(s): J69.0 - PNEUMONITIS DUE TO INHALATION OF FOOD AND VOMIT Status: Chronic Priority: Medium Current Visit: No (13) Chronic constipation SNOMED Code(s): 709135306 Code(s): K59.09 - OTHER CONSTIPATION Status: Chronic Priority: Low Current Visit: No (14) Diverticulosis SNOMED Code(s): 068209922 Code(s): K57.90 - DVRTCLOS OF INTEST, PART UNSP, W/O PERF OR ABSCESS W/O BLEED Status: Chronic Priority: Low Current Visit: No (15) Chronic neck pain SNOMED Code(s): 2933110226877 Code(s): M54.2 - CERVICALGIA; G89.29 - OTHER CHRONIC PAIN Status: Chronic Priority: Low Current Visit: No (16) Parkinsons disease SNOMED Code(s): 65532631 Code(s): G20 - PARKINSON'S DISEASE Status: Chronic Priority: Low Current Visit: No (17) Depression SNOMED Code(s): 78381269 Code(s): F32.9 - MAJOR DEPRESSIVE DISORDER, SINGLE EPISODE, UNSPECIFIED Status: Chronic Priority: Low Current Visit: No Qualifiers: Depression Type: other depression Qualified Code(s): F32.89 - Other specified depressive episodes (18) Type II diabetes mellitus SNOMED Code(s): 29652594 Code(s): E11.9 - TYPE 2 DIABETES MELLITUS WITHOUT COMPLICATIONS Status: Chronic Priority: Low Current Visit: No Qualifiers: Diabetes mellitus longterm insulin use: without longterm use Diabetes mellitus complication status: with other specified complication Qualified Code(s): E11.69 - Type 2 diabetes mellitus with other specified complication (19) History of breast cancer SNOMED Code(s): 068956443 Code(s): Z85.3 - PERSONAL HISTORY OF MALIGNANT NEOPLASM OF BREAST Status: Chronic Priority: Low Current Visit: No (20) History of colon cancer SNOMED Code(s): 769881966 Code(s): Z85.038 - PERSONAL HISTORY OF MALIGNANT NEOPLASM OF LARGE INTESTINE Status: Chronic Priority: Low Current Visit: No - Problem List Review Problem List Initiated/Reviewed/Updated: Yes - My Orders Last 24 Hours: My Active Orders 10/07/20 07:59 BASIC METABOLIC PANEL,BMP [CHEM] Routine CBC WITH AUTO DIFF [HEME] Routine - Assessment Assessment:: 10/05/20 * 89-year-old female presents the emergency department from [facility] with abdominal pain and coffee-ground emesis x1 * States that she developed the abdominal pain about 2 days ago. Pain is located in the suprapubic and mid abdomen region. * ED physician did try to obtain fecal occult stool however there was no stool in the rectal vault; the sample that was obtained was negative * Patient is currently only taking 1 baby aspirin daily; she does have a history of intermittent atrial fibrillation, TIA, and CVA * Currently receiving tube feedings via PEG tube due to dysphagia and recurrent aspiration pneumonia * Currently on pured diet with nectar thickened liquids she does need to be observed during all meals; * Labs in ED: WBC 8.06 Hgb 8.7 Hct 26.5 PLT 450 Na 133 K 3.7 Chl 97 Anion Gap 13.7 BUN 15 Cre 1.1 Glu 135 Ca 9.2 Total bili 0.4 AST 23 ALT 18 Alk Phos 75 Lipase 140 UA was unremarkable Hemoccult was negative however there was not stool in the rectal vault 10/06/20 * Reports feeling much better today * Tolerating tube feedings as well as. Diet with nectar thickened liquid h owever does have a significant amount of coughing noted with meals. Per the dietitian's communication with the [facility], the patient has been cued to forcefully cough with each bite to prevent any aspiration. * Has not had a bowel movement since being in the hospital * Has not had any nausea or emesis since being in the hospital * States her abdominal pain has resolved however she does note that with palpation to the middle of her abdomen she still has slight discomfort. * Radiologist impression portable view of the chest: 1. Questionable mid focal bronchitis within the inferior left perihilar region. Please correlate if this matches clinically. 2. Nothing acute is otherwise seen. Labs: WBC 8.06->14.60->6.91 Hgb 8.7->8.8->8.2->7.8 Hct 26.5->27.3->25.5->24.5 PLT 450->389->345 Na 133->135->134 K 3.7->4.1->4.2 Chl 97->99->99 Anion Gap 13.7->12.1->9.2 BUN 15->13->19 Cre 1.1->1.1->1.1 Glu 135->175->155 Ca 9.2->8.5->8.1 Total bili 0.4->0.6->0.3 AST 23->20->19 ALT 18->19->18 Alk Phos 75->65->68 Lipase 140 Albumin 3.1->2.7 Total protein 6.5->5.9 * Elevated WBC has returned to normal from yesterday; this was likely a stress response. * Hemoglobin has decreased to 7.8. - Plan Plan:: Upper GI bleed -No emesis in the past 48 hours -Hemoglobin in the emergency department was 8.7; 7.8 -->9.5 (s/p 1 unit) -Patient was started on Carafate 4 times daily -Protonix 40mg IV BID -Given 1 unit PRBC on 10/06/2020 -Repeat CBC in the a.m. Dysphagia S/P percutaneous endoscopic gastrostomy (PEG) tube placement History of colon cancer Recurrent aspiration pneumonia Diverticulosis Chronic constipation -Patient does have a history of CVA in the past and has been receiving tube feedings per PEG tube as a result -Per the [facility] records, the patient does receive pured diet with nectar thickened liquidsshe is observed with feeding during all meals -Change to NPO status and tube feedings are on hold due to decreased HGB levels; will give the patient 24 hours of bowel rest -Master Sonar Technician reports that the patient has only recently [facility] oral [facility] the [facility]. She is instructed to cough forcefully after every bite of food to prevent any aspiration. -Continue home Senna/Dulcolax Hyponatremia -D5 NS @ 100ml/hr as pt is npo and sodium is 134 History of Cerebrovascular accident History of TIA (transient ischemic attack) -not currently on anticoagulants; takes a 81mg baby ASA daily-this will be held for now -PT/OT for ambulation and strengthening and ADLs A-fib History of angina pectoris CAD (coronary artery disease) HLD (hyperlipidemia) HTN (hypertension) -Continue home lisinopril -No acute concerns -Monitor BP Chronic neck pain Parkinsons disease -No acute Depression -No acute concerns -Continue home Prozac Type II diabetes mellitus -Not on any current DM meds -Monitor blood sugars History of breast cancer -No acute concerns Code Status: DNR PCP: Dr. Christiansen DVT Prophylaxis: SCD's
[2020-10-07] MEDS ORDERED: FLUoxetine 20 MG Cap GTUBE SCH (09:00)
[2020-10-07] MEDS ORDERED: Lisinopril 10 MG Tab GTUBE SCH (09:00)
[2020-10-07] MEDS: Calcium Carbonate/Vitamin D3 600 MG-200 Units Tab GTUBE SCH (09:16)
[2020-10-07] MEDS: Sennosides 8.6 MG Tab GTUBE SCH (09:16)
[2020-10-07] MEDS: Pantoprazole 40 MG Vial IVPUSH SCH (09:16)
[2020-10-07] MEDS: Dextrose 5%-0.9% NaCl 1,000 ML IV SCH (09:20)
--- NOTE | 2020-10-07 09:55 | PCM.DCSUM1 ---
Discharge Summary - Hospital Course HPI Initial Comments: 89-year-old female who presented to the emergency department late last evening via [facility]. Patient is a resident of [facility]. Primary complaint was abdominal pain over the course of the last couple of days. Per the ER physician report it was in the upper abdomen and in the suprapubic area however per the patient's report, she is alert and oriented, it was more in her suprapubic area and mid abdomen. At the time she had denied any fever, chills, nausea, vomiting however she states she had been having some diarrhea. Of note the patient does have history of constipation [facility]. The patient is fed via G-tube because she has a history of dysphagia and has a history of numerous episodes of aspiration pneumonia. Nursing records also indicate that the patient is allowed to have a nectar thick, pured diet however she needs to be observed with all meals. Apparently the patient had vomited x1 at the prison yesterday and it appeared to be similar to coffee-ground emesis. The patient does take a baby aspirin daily. She denies any urinary symptoms. She does carry a history of unspecified atrial fibrillation as well as a history of TIA and CVA however she is not on any chronic anticoagulant therapy. Patient was afebrile while in the emergency department with a temp of 37.2 C, pulse is 91, respiratory rate was 15, blood pressure 131/70, pulse ox was 98% on room air. Lab work was completed this did show a WBC of 8.06, hemoglobin of 8.7, hematocrit 26.5, platelet count 450 sodium was 133, potassium 3.7, chloride 97, carbon dioxide 26, anion gap 13.7, BUN 15, creatinine 1.1, GFR 47, glucose 135, calcium 9.2, total bilirubin 0.4, AST 23, ALT 18, alk phos 75, lipase was 140, urinalysis was completed and this was unremarkable. The ER physician did attempt to do a Hemoccult and could not get any stool out of the vault. This was attempted several times. But they did get was Hemoccult negative. Patient was given a GI cocktail and she did states she had some improvement of her abdominal pain at that time sure. Patient was started on Carafate 4 times daily and was given a dose of Protonix in the emergency department. Was subsequently admitted to [facility] floor under observation status. Diagnosis: Stroke: No - Discharge Data Discharge Date: 10/07/20 (Admit date: 10/04/2020) Discharge Disposition: DC/Tfer to SNF 03 Condition: Fair - Referral to Home Health Primary Care Physician: Natan Christiansen MD - Discharge Diagnosis/Problem(s) (1) History of TIA (transient ischemic attack) SNOMED Code(s): 032670446 ICD Code: Z86.73 - PRSNL HX OF TIA (TIA), AND CEREB INFRC W/O RESID DEFICITS Status: Chronic Priority: Low Current Visit: No (2) History of CVA (cerebrovascular accident) SNOMED Code(s): 412455476 ICD Code: Z86.73 - PRSNL HX OF TIA (TIA), AND CEREB INFRC W/O RESID DEFICITS Status: Chronic Priority: Low Current Visit: No (3) Hyponatremia SNOMED Code(s): 16207107 ICD Code: E87.1 - HYPO-OSMOLALITY AND HYPONATREMIA Status: Acute Priority: Medium Current Visit: Yes (4) Upper GI bleed SNOMED Code(s): 17589741 ICD Code: K92.2 - GASTROINTESTINAL HEMORRHAGE, UNSPECIFIED Status: Acute Priority: High Current Visit: Yes (5) Dysphagia SNOMED Code(s): 22736620, 321657666 ICD Code: R13.10 - DYSPHAGIA, UNSPECIFIED Status: Chronic Priority: Medium Current Visit: Yes Qualifiers: Dysphagia type: unspecified Qualified Code(s): R13.10 - Dysphagia, unspecified (6) S/P percutaneous endoscopic gastrostomy (PEG) tube placement SNOMED Code(s): 562171686 ICD Code: Z93.1 - GASTROSTOMY STATUS Status: Chronic Priority: Low Current Visit: No (7) A-fib SNOMED Code(s): 56087800 ICD Code: I48.91 - UNSPECIFIED ATRIAL FIBRILLATION Status: Chronic Priority: Low Current Visit: No Qualifiers: Atrial fibrillation type: unspecified Qualified Code(s): I48.91 - Unspecified atrial fibrillation (8) History of angina pectoris SNOMED Code(s): 579574366 ICD Code: Z86.79 - PERSONAL HISTORY OF OTHER DISEASES OF THE CIRCULATORY SYSTEM Status: Chronic Priority: Low Current Visit: No (9) CAD (coronary artery disease) SNOMED Code(s): 54330961 ICD Code: I25.10 - ATHSCL HEART DISEASE OF [place] CORONARY ARTERY W/O ANG PCTRS Status: Chronic Priority: Low Current Visit: No Qualifiers: Coronary Disease-Associated Artery/Lesion type: unspecified vessel or lesion type [place] vs. transplanted heart: [place] heart Associated angina: unspecified whether angina present Qualified Code(s): I25.10 - Atherosclerotic heart disease of [place] coronary artery without angina pectoris (10) HLD (hyperlipidemia) SNOMED Code(s): 58226073 ICD Code: E78.5 - HYPERLIPIDEMIA, UNSPECIFIED Status: Chronic Priority: Low Current Visit: No Qualifiers: Hyperlipidemia type: unspecified Qualified Code(s): E78.5 - Hyperlipidemia, unspecified (11) HTN (hypertension) SNOMED Code(s): 92319950 ICD Code: I10 - ESSENTIAL (PRIMARY) HYPERTENSION Status: Chronic Priority: Low Current Visit: No Qualifiers: Hypertension type: unspecified Qualified Code(s): I10 - Essential (primary) hypertension (12) Recurrent aspiration pneumonia SNOMED Code(s): 691543293 ICD Code: J69.0 - PNEUMONITIS DUE TO INHALATION OF FOOD AND VOMIT Status: Chronic Priority: Medium Current Visit: No (13) Chronic constipation SNOMED Code(s): 139140324 ICD Code: K59.09 - OTHER CONSTIPATION Status: Chronic Priority: Low Current Visit: No (14) Diverticulosis SNOMED Code(s): 365919387 ICD Code: K57.90 - DVRTCLOS OF INTEST, PART UNSP, W/O PERF OR ABSCESS W/O BLEED Status: Chronic Priority: Low Current Visit: No (15) Chronic neck pain SNOMED Code(s): 5744946440037 ICD Code: M54.2 - CERVICALGIA; G89.29 - OTHER CHRONIC PAIN Status: Chronic Priority: Low Current Visit: No (16) Parkinsons disease SNOMED Code(s): 03255150 ICD Code: G20 - PARKINSON'S DISEASE Status: Chronic Priority: Low Current Visit: No (17) Depression SNOMED Code(s): 53115477 ICD Code: F32.9 - MAJOR DEPRESSIVE DISORDER, SINGLE EPISODE, UNSPECIFIED Status: Chronic Priority: Low Current Visit: No Qualifiers: Depression Type: other depression Qualified Code(s): F32.89 - Other specified depressive episodes (18) Type II diabetes mellitus SNOMED Code(s): 28132763 ICD Code: E11.9 - TYPE 2 DIABETES MELLITUS WITHOUT COMPLICATIONS Status: Chronic Priority: Low Current Visit: No Qualifiers: Diabetes mellitus detention insulin use: without bedspread folder use Diabetes mellitus complication status: with other specified complication Qualified Code(s): E11.69 - Type 2 diabetes mellitus with other specified complication (19) History of breast cancer SNOMED Code(s): 611801819 ICD Code: Z85.3 - PERSONAL HISTORY OF MALIGNANT NEOPLASM OF BREAST Status: Chronic Priority: Low Current Visit: No (20) History of colon cancer SNOMED Code(s): 994501437 ICD Code: Z85.038 - PERSONAL HISTORY OF MALIGNANT NEOPLASM OF LARGE INTESTINE Status: Chronic Priority: Low Current Visit: No (21) Anemia SNOMED Code(s): 615921617 ICD Code: D64.9 - ANEMIA, UNSPECIFIED Status: Acute Priority: High Current Visit: Yes Qualifiers: Anemia type: unspecified type Qualified Code(s): D64.9 - Anemia, unspecified - Patient Summary/Data Consults: Consultations 10/05/20 09:03 Consult to Case Management/Tumbling Machine Operator [CONS] Routine Consult to Pipeline Gang Supervisor [CONS] Routine 10/05/20 11:09 OT Evaluation and Treatment [CONS] Routine PT Evaluation and Treatment [CONS] Routine Labs Pending at D/C: None Recommended Follow-up Testing/Procedures: Follow-up with primary care provider within 7 to 10 days of discharge, sooner if needed. -Recommend repeat CBC, CMP, and magnesium at that visit. -Repeat CBC ordered for 10/12/2020 with results to PCP. -Aspirin was held due to GI bleed and will be discontinued on discharge - PCP may decide when/if to resume Hospital Course: This is an 89-year-old female who presents to our ED from [facility] with concerns over abdominal pain and coffee-ground emesis. Patient carries a history of A. fib, angina, CAD, HLD, HTN, recurrent pneumonia, chronic constipation, diverticulosis, chronic neck pain, CVA, Parkinson's disease, depression, type II DM, breast cancer, and colon cancer. She does have a PEG tube due to chronic dysphagia resulting from a prior CVA. Per family patient has been receiving pured feeds with nectar thickened liquids [facility] at the prison since June. PEG tube was placed last February. Per nursing staff at [facility] patient's PEG tube was aspirated and she was noted to have khmitc-[id number]-hqme material in her stomach. She was also noted to vomit krosaa-[id number]-[id number] material x1 at the prison. Patient is on aspirin daily and this was held. Throughout her stay there were no episodes of emesis. Hemoccult was attempted in the ED and they were unable to get any stool. On the floor Hemoccult was obtained and was negative. Patient was given a GI cocktail which did improve her abdominal pain. This did resolve throughout her stay. Family was concerned about a possible bowel obstruction although clinically patient has no findings concerning for this. Abdomen is soft and nontender now. There are also concerns as patient does have a history of aspiration pneumonia and will often times have a very violent coughing attack. This has been chronic for the patient. She was given a day of bowel rest and tube feedings have resumed. She was started on Carafate through her PEG tube 4 times daily and also Protonix every 12. Carafate will be continued every 6 hour at discharge and Protonix will be continued daily at discharge. There were no signs of any melanic or bloody stools here. Hemoglobin trend was 8.7-->8.8-->8.2-->7.8-->9.5-->9.3. She was given 1 unit of packed red blood cells once her hemoglobin dropped to 7.8. She responded well to this. She was given IV fluids as she had been hyponatremic while here. Blood glucoses have remained slightly high with a trend from 128-169. Per the patient's daughter she is a prediabetic. Patient will be [facility] today. Likely cause of the bleeding is upper GI but it appears to have resolved. Overall patient has a very poor prognosis with her chronic dysphagia and high risk of aspiration. As noted prior patient will be discharged on Carafate and Protonix. All home meds were continued with the exception of aspirin which was held. PCP can determine when/if aspirin will resume. Repeat CBC ordered for 10/12/2020 with results to patient's primary care provider. Recommend patient follow-up with primary care provider within 7 to 10 days of discharge, sooner if needed. Recommend repeat CBC, CMP, and magnesium at that visit. Recommend patient be followed closely by speech- language pathologist at [facility]. Recommend continuing to monitor patient's blood glucose as prior. Discharge today. - Patient Instructions Diet: Pureed (As before - see dietitian notes.) Diet, Other: Tube feeding as beforesee dietitian notes Activity: As Tolerated Driving: Do Not Drive Showering/Bathing: May Shower Notify Provider of: Fever, Increased Pain, Nausea and/or Vomiting Other/Special Instructions: Follow-up with primary care provider within 7 to 10 days of discharge, sooner if needed. Resume tube feedings as prior. Resume pured diet as prior. Monitor your blood sugars as per your prior routine. Resume home medications as directed. Hold aspirin for now. You may discuss with your primary care provider when to resume this, or if you want to resume this. You were prescribed a daily Protonix medicine and Carafate. You should take the Carafate every 6 hours. Take this 1 hour before or 2 hours after meals. Should symptoms return or worsen contact primary care provider return the emergency room. - Discharge Plan *PRESCRIPTION DRUG MONITORING PROGRAM REVIEWED*: No *COPY OF PRESCRIPTION DRUG MONITORING REPORT IN PATIENT IRA: No Prescriptions/Med Rec: Sucralfate [Carafate] 1 gm PEGTUBE Q6HR #28 cup Pantoprazole Sodium [Protonix] 40 mg PEGTUBE DAILY #30 [email or web address].pkt Home Medications: Home Meds Lisinopril 10 mg GTUBE DAILY 12/04/13 [History] Acetaminophen 500 mg GTUBE Q4HR PRN 11/27/19 [History] Calcium Carbonate/Vitamin D3 [Calcium Carbonate/Vitamin D 600 MG-200 Unit] 1 tab GTUBE BID 11/27/19 [History] FLUoxetine HCl [Fluoxetine HCl] 20 mg GTUBE DAILY 11/27/19 [History] Acetaminophen 650 mg GTUBE BEDTIME 10/04/20 [History] Bisacodyl [Gentle Laxative] 10 mg RC ASDIRECTED PRN 10/04/20 [History] Mag Hydrox/Aluminum Hyd/Simeth [Antacid Liquid] 20 ml GTUBE Q4H PRN 10/04/20 [History] Propylene Glycol/PEG 400/Pf [Systane 0.3-0.4% Eye Drop] 1 drop EYEBOTH Q6H PRN 10/04/20 [History] Sennosides [Senna] 8.6 mg GTUBE BID 10/04/20 [History] Pantoprazole Sodium [Protonix] 40 mg PEGTUBE DAILY #30 suspdr.pkt 10/07/20 [Rx] Sucralfate [Carafate] 1 gm PEGTUBE Q6HR #28 cup 10/07/20 [Rx] Patient Handouts: Gastrointestinal Bleeding, [id number] Referrals: Natan Christiansen MD [Primary Care Provider] - 10/16/20 9:30 am (this is the arrival time .) Anupam Varela MD [Ordering Only Provider] - - Discharge Summary/Plan Comment DC Time >30 min.: Yes (45 mins ) - General Info Date of Service: 10/07/20 Admission Dx/Problem (Free Text: Admission Diagnosis/Problem Admission Diagnosis/Problem Anemia Functional Status: Reports: Pain Controlled, Ambulating, Urinating. Denies: Tolerating Diet (Tube feeds ), New Symptoms - Review of Systems General: Reports: No Symptoms. Denies: Fever, Weakness, Fatigue, Malaise, Chills HEENT: Reports: No Symptoms, Other (Chronic dysphagia). Denies: Headaches, Sore Throat Pulmonary: Reports: Cough (chronic ), Sputum (chornic ). Denies: Shortness of Breath, Pleuritic Chest Pain Cardiovascular: Reports: No Symptoms. Denies: Chest Pain, Edema Gastrointestinal: Reports: Difficulty Swallowing (Chronic). Denies: Abdominal Pain, Constipation, Diarrhea, Hematochezia, Melena, Nausea, Vomiting Genitourinary: Reports: No Symptoms. Denies: Pain Musculoskeletal: Reports: No Symptoms Skin: Reports: No Symptoms. Denies: Cyanosis Neurological: Reports: No Symptoms. Denies: Confusion Psychiatric: Reports: No Symptoms. Denies: Confusion - Patient Data Vitals - Most Recent: Last Vital Signs Temp 97.2 F 10/07/20 07:41 Pulse 66 10/07/20 07:41 Resp 20 10/07/20 07:41 BP 140/40 L 10/07/20 09:16 Pulse Ox 97 10/07/20 07:41 Weight - Most Recent: 122 lb 8 oz I&O - Last 24 hours: Intake & Output 10/06/20 10/07/20 10/07/20 22:59 06:59 14:59 Intake Total 992 975 Balance 992 975 Lab Results - Last 24 hrs: Laboratory Results - last 24 hr 10/06/20 10/06/20 10/06/20 Range/Units 05:39 16:47 19:06 WBC (3.98-10.04) K/mm3 RBC (3.98-5.22) M/mm3 Hgb 9.5 L D (11.2-15.7) gm/dl Hct 29.2 L (34.1-44.9) % MCV (79.4-94.8) fl MCH (25.6-32.2) pg MCHC (32.2-35.5) g/dl RDW Std Deviation (36.4-46.3) fL Plt Count (182-369) K/mm3 MPV (9.4-12.3) fl Neut % (Auto) (34.0-71.1) % Lymph % (Auto) (19.3-51.7) % [place] % (Auto) (4.7-12.5) % Eos % (Auto) (0.7-5.8) Baso % (Auto) (0.1-1.2) % Neut # (Auto) (1.56-6.13) K/mm3 Lymph # (Auto) (1.18-3.74) K/mm3 [place] # (Auto) (0.24-0.36) K/mm3 Eos # (Auto) (0.04-0.36) K/mm3 Baso # (Auto) (0.01-0.08) K/mm3 Sodium (136-145) mEq/L Potassium (3.5-5.1) mEq/L Chloride (98-107) mEq/L Carbon Dioxide (21-32) mEq/L Anion Gap (5-15) BUN (7-18) mg/dL Creatinine (0.55-1.02) mg/dL Est Cr Clr Drug Dosing mL/min Estimated GFR (MDRD) (>60) mL/min BUN/Creatinine Ratio (14-18) Glucose (70-99) mg/dL POC Glucose 126 H (70-99) mg/dL Calcium (8.5-10.1) mg/dL Blood Type O POSITIVE Gel Antibody Screen Negative Crossmatch See Detail 10/07/20 10/07/20 10/07/20 Range/Units 06:25 08:35 08:35 WBC 5.18 (3.98-10.04) K/mm3 RBC 3.03 L (3.98-5.22) M/mm3 Hgb 9.3 L (11.2-15.7) gm/dl Hct 28.4 L (34.1-44.9) % MCV 93.7 D (79.4-94.8) fl MCH 30.7 (25.6-32.2) pg MCHC 32.7 (32.2-35.5) g/dl RDW Std Deviation 45.1 (36.4-46.3) fL Plt Count 286 (182-369) K/mm3 MPV 8.5 L (9.4-12.3) fl Neut % (Auto) 59.1 (34.0-71.1) % Lymph % (Auto) 24.9 (19.3-51.7) % [place] % (Auto) 10.8 (4.7-12.5) % Eos % (Auto) 4.6 (0.7-5.8) Baso % (Auto) 0.6 (0.1-1.2) % Neut # (Auto) 3.06 (1.56-6.13) K/mm3 Lymph # (Auto) 1.29 (1.18-3.74) K/mm3 [place] # (Auto) 0.56 H (0.24-0.36) K/mm3 Eos # (Auto) 0.24 (0.04-0.36) K/mm3 Baso # (Auto) 0.03 (0.01-0.08) K/mm3 Sodium 139 (136-145) mEq/L Potassium 3.8 (3.5-5.1) mEq/L Chloride 104 (98-107) mEq/L Carbon Dioxide 27 (21-32) mEq/L Anion Gap 11.8 (5-15) BUN 9 (7-18) mg/dL Creatinine 1.0 (0.55-1.02) mg/dL Est Cr Clr Drug Dosing 29.90 mL/min Estimated GFR (MDRD) 52 (>60) mL/min BUN/Creatinine Ratio 9.0 L (14-18) Glucose 162 H (70-99) mg/dL POC Glucose 139 H (70-99) mg/dL Calcium 8.5 (8.5-10.1) mg/dL Blood Type Gel Antibody Screen Crossmatch Med Orders - Current: Current Medications Acetaminophen (Acetaminophen 325 Mg/10.15 Ml Ml) 650 mg PEGTUBE Q4H PRN PRN Reason: Pain/Fever Last Admin: 10/06/20 15:10 Dose: 650 mg Documented by: Acetaminophen (Acetaminophen 325 Mg Tab) 650 mg GTUBE BEDTIME JULIANA Last Admin: 10/06/20 21:21 Dose: 650 mg Documented by: Al Hydroxide/Mg Hydroxide (Aluminum Hydroxide/Magnesium Hydroxide/Simethicone Susp 30 Ml Cup) 30 ml GTUBE Q4H PRN PRN Reason: Heartburn Artificial Tears (Carboxymethylcellulose Sodium 1% Ophth Gel 15 Ml Bottle) 1 ml EYEBOTH Q6H PRN PRN Reason: Dry Eyes Bisacodyl (Bisacodyl 10 Mg Supp) 10 mg RECTAL ASDIRECTED PRN PRN Reason: Constipation Calcium Carbonate (Calcium Carbonate/Vitamin D3 600 Mg-200 Units Tab) 1 tab GTUBE BID [facility] Last Admin: 10/07/20 09:16 Dose: 1 tab Documented by: Fluoxetine HCl (Fluoxetine 20 Mg Cap) 20 mg GTUBE DAILY [facility] Last Admin: 10/07/20 09:16 Dose: 20 mg Documented by: Dextrose/Sodium Chloride (Dextrose 5%-Normal Saline) 1,000 mls @ 100 mls/hr IV ASDIRECTED [facility] Last Admin: 10/07/20 09:20 Dose: 100 mls/hr Documented by: Lisinopril (Lisinopril 10 Mg Tab) 10 mg GTUBE DAILY [facility] Last Admin: 10/07/20 09:16 Dose: 10 mg Documented by: Miscellaneous Information (Remove Scopolamine Patch) 1 ea TRDERM ONETIME ONE Stop: 10/09/20 17:31 Ondansetron HCl (Ondansetron 4 Mg/2 Ml Sdv) 4 mg IVPUSH Q6H PRN PRN Reason: Nausea Last Admin: 10/05/20 02:17 Dose: 4 mg Documented by: Pantoprazole Sodium (Pantoprazole 40 Mg Vial) 40 mg IVPUSH Q12H [facility] Last Admin: 10/07/20 09:16 Dose: 40 mg Documented by: Senna (Sennosides 8.6 Mg Tab) 8.6 mg GTUBE BID [facility] Last Admin: 10/07/20 09:16 Dose: Not Given Documented by: Sucralfate (Sucralfate Suspension 1 Gm/10 Ml Cup) 1 gm PEGTUBE QIDACANDBED [facility] Last Admin: 10/07/20 06:48 Dose: 1 gm Documented by: Discontinued Medications Al Hydroxide/Mg Hydroxide 30 (ml/ Lidocaine HCl 15 ml) 0 ml GTUBE ONETIME ONE Stop: 10/04/20 21:16 Last Admin: 10/04/20 21:37 Dose: 30 ml Documented by: Fluoxetine HCl (Fluoxetine 20 Mg Cap) 20 mg GTUBE DAILY [facility] Last Admin: 10/05/20 10:32 Dose: 20 mg Documented by: Fluoxetine HCl (Fluoxetine 20 Mg Cap Ptom) 20 mg GTUBE DAILY [facility] Last Admin: 10/06/20 08:52 Dose: 20 mg Documented by: Dextrose/Sodium Chloride (Dextrose 5%-1/2 Ns) 1,000 mls @ 75 mls/hr IV ASDIRECTED [facility] Dextrose/Sodium Chloride (Dextrose 5%-1/2 Ns) 1,000 mls @ 75 mls/hr IV ASDIRECTED [facility] Last Admin: 10/05/20 02:14 Dose: 75 mls/hr Documented by: Sodium Chloride (Sodium Chloride 0.45%) 1,000 mls @ 100 mls/hr IV ASDIRECTED [facility] Sodium Chloride (Normal Saline) 250 mls @ 50 mls/hr IV ASDIRECTED [facility] Lisinopril (Lisinopril 10 Mg Tab Ptom) 10 mg GTUBE DAILY [facility] Last Admin: 10/05/20 15:45 Dose: Not Given Documented by: Lisinopril (Lisinopril 10 Mg Tab Ptom) 10 mg GTUBE DAILY [facility] Last Admin: 10/06/20 08:52 Dose: 10 mg Documented by: Pantoprazole Sodium (Pantoprazole 40 Mg Vial) 40 mg IVPUSH ONETIME ONE Stop: 10/05/20 03:16 Last Admin: 10/05/20 05:08 Dose: 40 mg Documented by: Pantoprazole Sodium (Pantoprazole 40 Mg Vial) 40 mg IVPUSH DAILY [facility] Last Admin: 10/05/20 10:22 Dose: 40 mg Documented by: Scopolamine (Scopolamine 1.5 Mg Transdermal Patch) 1.5 mg TOP ONETIME ONE Stop: 10/06/20 17:28 Last Admin: 10/06/20 17:58 Dose: 1.5 mg Documented by: Sucralfate (Sucralfate Suspension 1 Gm/10 Ml Cup) 1 gm PO ONETIME ONE Stop: 10/05/20 03:16 Last Admin: 10/05/20 05:11 Dose: Not Given Documented by: - Exam Quality Assessment: Reports: DVT Prophylaxis. Denies: Supplemental Oxygen, Urine Catheter General: Reports: Alert, Oriented, Cooperative, No Acute Distress HEENT: Reports: Pupils Equal, Pupils Reactive, Mucous Membr. Moist/[place] Neck: Reports: Supple, Trachea Midline Lungs: Reports: Clear to Auscultation, Normal Respiratory Effort Cardiovascular: Reports: Regular Rate, Regular Rhythm, Murmurs GI/Abdominal Exam: Normal Bowel Sounds, Soft, Non-Tender, No Distention (Female) Exam: Deferred Rectal (Female) Exam: Deferred Back Exam: Reports: Normal Inspection, Decreased Range of Motion Extremities: Normal Inspection, Normal Range of Motion, Non-Tender, No Pedal Edema, Normal Capillary Refill Skin: Reports: Warm, Dry, Intact Neurological: Reports: No New Focal Deficit Psy/Mental Status: Reports: Alert, Normal Affect, Normal Mood
[2020-10-07 12:01] VITALS: BP 148/37; PULSE 64
== END 2020-10-07 13:47 | DRG 378 ==
LOC: JD.ED 20:21 → JD.MS 23:36 → OBSVTOIN 10-06 08:52
PROVIDERS: ADMIT Pediatrics; ATTEND Pediatrics
PROC: 30233N1 Transfusion of Nonautologous Red Blood Cells into Peripheral Vein, Percutaneous Approach (ICD-10-PCS; principal; 2020-10-06)
DX: K92.0 Hematemesis (principal); K92.2 Gastrointestinal hemorrhage, unspecified; D62 Acute posthemorrhagic anemia; E87.1 Hypo-osmolality and hyponatremia; I69.354 Hemiplegia and hemiparesis following cerebral infarction affecting left non-dominant side; R13.10 Dysphagia, unspecified; E78.00 Pure hypercholesterolemia, unspecified; Z93.1 Gastrostomy status; I48.91 Unspecified atrial fibrillation; Z86.79 Personal history of other diseases of the circulatory system; I25.10 Atherosclerotic heart disease of native coronary artery without angina pectoris; M54.2 Cervicalgia; E78.5 Hyperlipidemia, unspecified; I10 Essential (primary) hypertension; K59.09 Other constipation; G89.29 Other chronic pain; G20 Parkinson's disease; F32.9 Major depressive disorder, single episode, unspecified; Z88.2 Allergy status to sulfonamides; Z88.7 Allergy status to serum and vaccine; Z79.82 Long term (current) use of aspirin; Z79.899 Other long term (current) drug therapy; E11.9 Type 2 diabetes mellitus without complications; Z79.4 Long term (current) use of insulin; Z85.3 Personal history of malignant neoplasm of breast; Z85.038 Personal history of other malignant neoplasm of large intestine; Z20.822 Contact with and (suspected) exposure to COVID-19; Z66 Do not resuscitate; Z98.42 Cataract extraction status, left eye; Z98.41 Cataract extraction status, right eye; Z90.89 Acquired absence of other organs; Z96.643 Presence of artificial hip joint, bilateral
CPT/HCPCS: 36415 ×3; 71045; 80053 ×3; 81003; 82272; 82947 ×3; 83690; 83735 ×2; 85014; 85018; 85025 ×3; 86850; 86900; 86901; 86922; 87641; 97162; 97166; 97535; 99285; A9270 ×16; C9113 ×4; J2405; J7042 ×2; U0002; 36430; 80048; 96374; 96375; 96376; 99219; 99233; 99239; 99283; G0378; P9016

== ENCOUNTER 2021-02-28 10:36 | Emergency (ER) | payer MEDICARE, OTHER ==
[2021-02-28 11:16] VITALS: PULSE 66
--- NOTE | 2021-02-28 11:43 | EDM.PDOC ---
ED HPI GENERAL MEDICAL PROBLEM - General Chief Complaint: General Stated Complaint: PICK LINE REMOVED Time Seen by Provider: 02/28/21 11:24 Source of Information: Reports: Patient History Limitations: Reports: No Limitations - History of Present Illness INITIAL COMMENTS - FREE TEXT/NARRATIVE: 89-year-old female presents the emergency department today from [facility]. Per the report, patient was getting undressed this morning at the half-way when her PEG tube inadvertently got pulled out. Patient denies any other complaints or symptoms. She has not had any recent fever chills, nausea, vomiting or diarrhea. Abdominal Pain Score (Numeric/FACES): 2 - Related Data Allergies Allergy/AdvReac Type Severity Reaction Status Date / Time pneumococcal vaccine Allergy Airway Verified 02/28/21 11:16 Tightness Sulfa (Sulfonamide Allergy Hives Verified 02/28/21 11:16 Antibiotics) Home Meds: Home Meds Lisinopril 10 mg GTUBE DAILY 12/04/13 [History] Acetaminophen 500 mg GTUBE Q4HR PRN 11/27/19 [History] Calcium Carbonate/Vitamin D3 [Calcium Carbonate/Vitamin D 600 MG-200 Unit] 1 tab GTUBE BID 11/27/19 [History] FLUoxetine HCl [Fluoxetine HCl] 20 mg GTUBE DAILY 11/27/19 [History] Acetaminophen 650 mg GTUBE BEDTIME 10/04/20 [History] Bisacodyl [Gentle Laxative] 10 mg RC ASDIRECTED PRN 10/04/20 [History] Mag Hydrox/Aluminum Hyd/Simeth [Antacid Liquid] 20 ml GTUBE Q4H PRN 10/04/20 [History] Propylene Glycol/PEG 400/Pf [Systane 0.3-0.4% Eye Drop] 1 drop EYEBOTH Q6H PRN 10/04/20 [History] Sennosides [Senna] 8.6 mg GTUBE BID 10/04/20 [History] Pantoprazole Sodium [Protonix] 40 mg PEGTUBE DAILY #30 suspdr.pkt 10/07/20 [Rx] Sucralfate [Carafate] 1 gm PEGTUBE Q6HR #28 cup 10/07/20 [Rx] Past Medical History HEENT History: Reports: Cataract Cardiovascular History: Reports: Afib, Angina, CAD, High Cholesterol, Hypertension Respiratory History: Reports: Pneumonia, Recurrent Gastrointestinal History: Reports: Chronic Constipation, Diverticulosis Genitourinary History: Reports: Urinary Incontinence [employer] History: Reports: Musculoskeletal History: Reports: Neck Pain, Chronic Other Musculoskeletal History: 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, 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 Neurological History: Reports: CVA, Parkinson's Other Neuro History: 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 Psychiatric History: Reports: Depression Endocrine/Metabolic History: Reports: Diabetes, Type II Oncologic (Cancer) History: Reports: Breast, Colon - Past Surgical History HEENT Surgical History: Reports: Cataract Surgery, Tonsillectomy Cardiovascular Surgical History: Reports: Carotid Stents GI Surgical History: Reports: Colon, Other (See Below) Other GI Surgeries/Procedures: CA of colon with 17 inches removed, PEG tube Endocrine Surgical History: Reports: None Neurological Surgical History: Reports: None Musculoskeletal Surgical History: Reports: Hip Replacement Other Musculoskeletal Surgeries/Procedures:: total hip to left side. partial hip to right side Oncologic Surgical History: Reports: Lumpectomy Other Oncologic Surgeries/Procedures: 17 inches of colon removed, right breast lumpectomy with 17 nodes removed Social & Family History - Family History Family Medical History: Unobtainable Cardiac: Reports: Heart Failure, Stent Respiratory: Reports: Asthma Psychiatric: Reports: Anxiety, Depression Endocrine/Metabolic: Reports: Diabetes, type II Oncologic: Reports: Colon - Tobacco Use Tobacco Use Status *Q: Never Tobacco User Second Hand Smoke Exposure: No - Caffeine Use Caffeine Use: Reports: Coffee - Recreational Drug Use Recreational Drug Use: No - Living Situation & Occupation Living situation: Reports: , with Spouse Occupation: Retired ED ROS GENERAL - Review of Systems Review Of Systems: Comprehensive ROS is negative, except as noted in HPI. ED EXAM, GENERAL - Physical Exam Exam: See Below Exam Limited By: No Limitations General Appearance: Alert, WD/WN, No Apparent Distress Ears: Normal External Exam, Hearing Grossly Normal Nose: Normal Inspection Throat/Mouth: Normal Inspection, Normal Lips, Normal Voice, No Airway Compromise Head: Atraumatic Neck: Normal Inspection, Supple Respiratory/Chest: No Respiratory Distress, Lungs Clear, Normal Breath Sounds, No Accessory Muscle Use, Chest Non-Tender Cardiovascular: Normal Peripheral Pulses, Regular Rate, Rhythm, No Edema, No Murmur GI/Abdominal: Normal Bowel Sounds, Soft, Non-Tender, No Distention, Other (PEG tube site to upper abdomen) (Female) Exam: Deferred Rectal (Female) Exam: Deferred Back Exam: Normal Inspection Extremities: Normal Inspection Neurological: Alert, Oriented, Normal Cognition Psychiatric: Normal Affect, Normal Mood Skin Exam: Warm, Dry, Intact, Normal Color, No Rash Lymphatic: No Adenopathy Course - Vital Signs Text/Narrative:: As stated above, patient presents due to her PEG tube inadvertently getting pulled out this morning at the half-way. Patient is hemodynamically stable at the time of my exam. She denies any complaints of pain or discomfort. Upon exam, patient does have a scant amount of dried bloody drainage noted around opening of PEG tube site. Will replace PEG tube with 14 American Bailey catheter as we do not have any feeding tubes in the emergency department. Last Recorded V/S: Last Vital Signs Temp 97.7 F 02/28/21 11:15 Pulse 66 02/28/21 11:15 Resp 18 02/28/21 11:15 BP 122/88 02/28/21 11:15 Pulse Ox 99 02/28/21 11:15 - Re-Assessments/Exams Free Text/Narrative Re-Assessment/Exam: 02/28/21 11:41 Area around PEG tube was cleaned. 14 American Bailey catheter was lubricated with K-Y jelly and inserted without any resistance or difficulty into PEG tube site. 10 mL balloon inflated. Nursing staff order to flush Bailey catheter to be sure placement. Bailey catheter secured with tape. Patient will be discharged and she will need to follow-up with general surgery for replacement of PEG tube. 02/28/21 11:45 Nursing staff reports that Bailey catheter flushes easily and even runs to gravity without difficulty. Patient will be discharged to the half-way and she will need to follow-up with general surgery. Departure - Departure Time of Disposition: 11:46 Disposition: DC/[facility] to [facility] Condition: Good Clinical Impression: PEG (percutaneous endoscopic gastrostomy) adjustment/replacement/removal - Discharge Information Referrals: Anupam Varela MD [Primary Care Provider] - Additional Instructions: Seble was seen in the emergency department to have PEG tube placed after it inadvertently got pulled out this morning. We do not have any PEG tubes available in the emergency department so Bailey catheter was placed. Patient tolerated the procedure well without difficulty. 10 mL of normal saline were flushed into the balloon ~PEG tube in place. She will need to follow-up with general surgery clinic this week to have PEG tube placed. Sepsis Event Note (ED) - Focused Exam Vital Signs: Vital Signs Temp Pulse Resp BP Pulse Ox 02/28/21 11:15 97.7 F 66 18 122/88 99
[2021-02-28 12:27] VITALS: BP 167/60
== END 2021-02-28 12:05 ==
LOC: JD.ED 10:36
DX: K94.29 Other complications of gastrostomy (principal); I48.91 Unspecified atrial fibrillation; I25.119 Atherosclerotic heart disease of native coronary artery with unspecified angina pectoris; I10 Essential (primary) hypertension; E11.9 Type 2 diabetes mellitus without complications; Z88.7 Allergy status to serum and vaccine; Z88.2 Allergy status to sulfonamides; Z79.899 Other long term (current) drug therapy
CPT/HCPCS: 51702; 99282-25